=== PATIENT | female | born 1950 | race African-American/Black ===

== ENCOUNTER 2017-02-14 08:00 | Outpatient (CLI) | payer MEDICARE | END 2017-02-14 08:01 | disposition home or self-care (01) | LOC: BICMAMMO 08:00 | PROVIDERS: ATTEND Nurse Practitioner Family | DX: Z12.31 Encounter for screening mammogram for malignant neoplasm of breast (principal); R92.1 Mammographic calcification found on diagnostic imaging of breast | CPT/HCPCS: 77063 ==

== ENCOUNTER 2017-03-17 08:07 | Outpatient (CLI) | payer MEDICARE ==
[2017-03-17 09:53] LABS: Hemoglobin 9.5 g/dL (12.0-16.0); Mean Corpuscular Hemoglobin 28.7 pg (27.0-31.0); Mean Platelet Volume 8.1 fL (7.4-10.4); Platelet Count 231 thou/uL (130-400); RBC Distribution Width 11.9 % (11.5-14.5); Red Blood Cell (RBC) Count 3.31 mill/uL (4.20-5.40); White Blood Cell (WBC) Count 4.5 thou/uL (4.8-10.8)
[2017-03-17 10:00] LABS: INR-International Normal Ratio 1.1; PTT 33.6 SEC (22.9-36.1); Prothrombin Time 14.3 SEC (12.0-14.7)
[2017-03-17 10:24] LABS: ALT (SGPT) 8 U/L (8-55); AST (SGOT) 15 U/L (5-34); Albumin 3.7 g/dL (3.4-4.8); Alkaline Phosphatase 91 U/L (40-150); Anion Gap 14 mmol/L (10-20); BUN (Urea Nitrogen) 12 mg/dL (9.8-20.1); Bilirubin, Total 0.4 mg/dL (0.2-1.2); Calc. Creatinine Clearance 0 mL/min (70-130); Calcium 9.3 mg/dL (7.8-10.44); Carbon Dioxide 27 mmol/L (23-31); Chloride 105 mmol/L (98-107); Cholesterol 158 mg/dl (< 200 Desired); Estimated GFR-MDRD 42; Globulin 3.3 g/dL (2.4-3.5); Glucose 104 mg/dL (80-115); HDL Cholesterol 40 mg/dL (>60 Neg Risk); LDL Cholesterol, Calculated 91 mg/dL; Potassium 4.1 mmol/L (3.5-5.1); Sodium 142 mmol/L (136-145); Triglycerides 136 mg/dL (Less than 150)
== END 2017-03-17 08:08 | disposition home or self-care (01) ==
LOC: LABBT 08:07
PROVIDERS: ATTEND Internal Medicine Cardiovascular Disease
DX: Z01.818 Encounter for other preprocedural examination (principal); I25.10 Atherosclerotic heart disease of native coronary artery without angina pectoris; R93.1 Abnormal findings on diagnostic imaging of heart and coronary circulation
CPT/HCPCS: 80053; 80061; 85027; 85610; 85730

== ENCOUNTER 2017-05-02 08:43 | Outpatient (CLI) | payer MEDICARE ==
[2017-05-02 10:13] LABS: Mean Corpuscular HGB CONC 31.7 g/dL (32.0-36.0); Mean Corpuscular Hemoglobin 27.5 pg (27.0-31.0); Mean Corpuscular Volume 86.7 fl (81.0-99.0); Platelet Count 187 thou/uL (130-400); RBC Distribution Width 12.3 % (11.5-14.5); Red Blood Cell (RBC) Count 3.26 mill/uL (4.20-5.40); White Blood Cell (WBC) Count 3.6 thou/uL (4.8-10.8)
[2017-05-02 10:20] LABS: INR-International Normal Ratio 1.1; Prothrombin Time 14.1 SEC (12.0-14.7)
[2017-05-02 10:21] LABS: PTT 31.8 SEC (22.9-36.1)
[2017-05-02 10:28] LABS: ALT (SGPT) 7 U/L (8-55); AST (SGOT) 14 U/L (5-34); Albumin 3.7 g/dL (3.4-4.8); Alkaline Phosphatase 87 U/L (40-150); Anion Gap 12 mmol/L (10-20); BUN (Urea Nitrogen) 24 mg/dL (9.8-20.1); Bilirubin, Total 0.4 mg/dL (0.2-1.2); Calc. Creatinine Clearance 0 mL/min (70-130); Calcium 9.2 mg/dL (7.8-10.44); Carbon Dioxide 23 mmol/L (23-31); Chloride 110 mmol/L (98-107); Estimated GFR-MDRD 36; Globulin 3.1 g/dL (2.4-3.5); Glucose 87 mg/dL (80-115); Potassium 3.7 mmol/L (3.5-5.1); Protein, Total 6.8 g/dL (6.0-8.3); Sodium 141 mmol/L (136-145)
--- NOTE | 2017-05-02 17:09 | EKG ---
Test Reason : Blood Pressure : / mmHG Vent. Rate : 050 BPM Atrial Rate : 050 BPM P-R Int : 156 ms QRS Dur : 084 ms QT Int : 414 ms P-R-T Axes : -05 055 020 degrees QTc Int : 377 ms Sinus bradycardia Abnormal ECG When compared with ECG of 07-JUN-2015 11:20, ST no longer depressed in Anterolateral leads T wave inversion less evident in Lateral leads QT has shortened Confirmed by DR. Perico DOVE ([id number]) on 05/02/2017 5:08:17 PM Referred By: VANDANA Confirmed By:DR. Perico DOVE
== END 2017-05-02 08:44 | disposition home or self-care (01) ==
LOC: LABBT 08:43
PROVIDERS: ATTEND Internal Medicine Cardiovascular Disease
DX: Z01.818 Encounter for other preprocedural examination (principal); I25.10 Atherosclerotic heart disease of native coronary artery without angina pectoris; R93.1 Abnormal findings on diagnostic imaging of heart and coronary circulation
CPT/HCPCS: 80053; 85027; 85610; 85730; 93005; 93010

== ENCOUNTER 2017-05-11 06:04 | Day surgery (SDC) | payer MEDICARE ==
[2017-05-02 09:00] VITALS: BMI 19.1
[2017-05-11] MEDS ORDERED: Lidocaine 1% (PF) 30 ML VIAL ONE (06:33)
[2017-05-11 06:53] LABS: Cardiac Risk 3.3 (Less than 4.5)
[2017-05-11] MEDS ORDERED: Iopamidol 370 76% 100 ML VIAL ONE (07:24)
[2017-05-11] MEDS ORDERED: hydrALAZINE 20 MG/ML VIAL ONE (07:58)
[2017-05-11] MEDS ORDERED: Nitroglycerin 4.9 GM Bottle ONE (08:11)
--- NOTE | 2017-05-11 08:45 | HP ---
The patient's last office H&P was back in 03/28/2017. There have been really no changes since 2017. DATE OF PROCEDURE: 05/11/2017 DATE OF PLANNED OUTPATIENT ROCEDURE: 05/11/2017. HISTORY: This is a 66-year-old female who has a known history of coronary artery disease, status pos t bypass surgery, status post angioplasty and stent placement with peripheral vascular disease, hyper tension, renal artery stenosis. She was seen in the office and had been complaining of continued jelly st discomfort. She had earlier undergone a cardiac catheterization back in 03/2017 and was found to have significant underlying coronary disease. It was felt that possibly she would be a candidate to undergo angioplasty and stent placement for in-stent restenosis of the left circumflex and she was ad vised to get her kidney function and her anemia under good control as possible. She was anemic and w carmela did evaluate her. She was not found to have any evidence of blood in the stools, but she did say t hat she had a history in the past of thalassemia. This has not been followed and has not been worked up in the past other than many years ago when she was told she had thalassemia. Her mother also had thalassemia. I do not know if it is thalassemia major or minor, but she has been doing relatively s table. She takes iron twice a day. With plan for the procedure for possible angioplasty and stent p lacement to the left circumflex, this was scheduled for 05/11/2017. PAST MEDICAL HISTORY: Significant for the coronary disease as noted above, hypertension, hypercholes terolemia, dyslipidemia, congestive heart failure, History of a non-ST segment elevation myocardial infarctions, hypothyroidism. She had bypass surgery in the past. She has also had a renal artery st ents placed. She has had right leg surgery x2. She has had bilateral carpal tunnel syndrome repair. She has had a , hysterectomy, cholecystectomy. She has had a right renal artery stent odell daisha. ALLERGIES: No known drug allergies. MEDICATIONS: Prior to admission included Xanax, aspirin 325 mg a day, Lipitor 40 mg a day, Caltrate, Coreg 25 mg b.i.d., Plavix 75 mg a day, vitamin B12, Feosol 325 mg twice a day, Lasix 20 mg a day, h ydralazine 25 mg 3 times daily, isosorbide mononitrate 60 mg q.a.m. She also was taking levothyroxin e 25 mcg daily, lisinopril 10 mg a day, pantoprazole 40 mg q.p.m. and potassium 10 mEq p.o. daily. I will hold her lisinopril at this time. REVIEW OF SYSTEMS: She mainly complained of chest discomfort. She also complains of lower extremity discomfort at times and sometimes cramping. Sometimes she will get fatigued when walking. She has undergone arterial Doppler evaluation which showed mild to moderate lower extremity stenosis or disea se. She denied any weight gain or loss, no significant visual changes. She had denied any significa nt pulmonary problems except for dyspnea on exertion. CARDIOVASCULAR: Continues to have some occasional chest discomfort if she over exerts herself. GASTROINTESTINAL: She denied any nausea, vomiting or diarrhea. : She had no complaints such as dysuria, polyuria or hematuria. MUSCULOSKELETAL: As noted above. She complains of lower extremity claudication at times and crampin g, no swelling or significant edema was noted. NEUROLOGICAL: She has had no complaints of syncope. No significant dizziness. PHYSICAL EXAMINATION: GENERAL: Reveals a well-developed, well-nourished female who is in no acute distress at this time. VITAL SIGNS: Blood pressure was 169/78, heart rate is anywhere between 50-70s with a normal sinus rh ythm. HEENT: Shows the head to be normocephalic, atraumatic. Carotid pulses were present. She has bilate ral carotid bruits which was previously noted, the left being greater than the right. CHEST: Clear to auscultation. CARDIOVASCULAR: Exam reveals a regular rate and rhythm, normal S1, S2. ABDOMEN: Also unremarkable. She has had soft bruits in the past. Femoral pulses are present. She has bilateral femoral bruits. EXTREMITIES: Show no clubbing, cyanosis. Pedal pulses were decreased, cannot palpate pedal pulses. NEUROLOGIC: She appears to be fully intact and did not notice any focal motor deficits. SKIN: Warm and dry. IMPRESSION: Severe 3-vessel coronary artery disease. She is being evaluated for possible angioplast y and repeat stent placement. A repeat angioplasty to the in-stent restenosis of the left circumflex to see if there is any other possibility of any other revascularization that might be possible. We did explain the procedure, the risks to her to include bleeding, infection, possibly a myocardial inf arction, cerebrovascular, worsening of renal insufficiency, even the possibility of . She under stands and has agreed to proceed with the procedure which was planned for today on 05/11/2017.
--- NOTE | 2017-05-11 10:39 | DIS ---
ADMITTING DIAGNOSES: Known coronary artery disease, status post angioplasty, stent placements in the past, and also status post bypass surgery with progression of coronary artery disease as well as ane viry and hypertension. She was advised to undergo repeat catheterization with the hope that we might be able to perform a repeat angioplasty to the left circumflex. She was taken to the cardiac cath la b where she underwent that procedure today. OTHER ADMITTING DIAGNOSES: Include the hypertension, hypercholesterolemia, peripheral vascular disea se, hypothyroidism, some degree of depression, history of stent placement in the past, history of abbie al artery stenosis. She has undergone a right renal artery stenting. DISCHARGE DIAGNOSES: Known coronary artery disease, status post angioplasty, stent placements in the past, and also status post bypass surgery with progression of the coronary artery disease as well as anemia and hypertension. She was advised to undergo repeat catheterization with the hope that we mi t be able to perform a repeat angioplasty to the left circumflex. She was taken to the cardiac cat h lab where she underwent that procedure today. Hypertension, hypercholesterolemia, peripheral vascu lar disease, hypothyroidism, some degree of depression, history of stent placement in the past, histo ry of renal artery stenosis. She has undergone a right renal artery stenting. PROCEDURE IN THE HOSPITAL: Cardiac catheterization with evaluation of the coronary arteries, left in ternal mammary artery, saphenous vein graft, and also renal arteries. Her discharge medications will be the same as her admission medications except she will no longer be taking lisinopril, which was recently started. Her renal function has deteriorated somewhat since th at time, but she does have distal disease in the renal arteries. DISCHARGE MEDICATIONS: Include Xanax, aspirin, Lipitor, Caltrate, Coreg, Plavix, vitamin B12, Feosol , Lasix, hydralazine, isosorbide mononitrate, levothyroxine, pantoprazole, and potassium. Her followup will be with me in about 1 month in the office. She will continue routine followups wit h her primary care physician. HOSPITAL COURSE: She came in for the procedure. We reevaluated the coronary arteries. She is not a candidate to undergo repeat procedures. She has very small vessels and they are heavily calcified. She has some distal left main stenosis in the proximal left circumflex, also 75%-90% stenosed. Ther e is in-stent restenosis that is probably 90%. We would be unable to pass a balloon across this more than 90-degree angle on the proximal left circumflex, especially with the left main stenosis also to try to engage into this artery. The artery still does remain patent, despite having severe stenosis . Her other vessels are less than 2 mm in diameter. The proximal left circumflex is also less than 2 mm in diameter as well as distended area. She still has a patent ALMAR[place] to the left anterior descend ing artery, but has diffuse disease and calcification beyond the anastomotic site. Her other vessels are not operable. She has a 100% occlusion of the saphenous vein graft to the right coronary, 100% occlusion of the [place] right vessel. All of her grafts are closed. We did visualize one graft toda y and that also was noted to be 100% occluded. At this time, we will be able to continue medical man agement only. If she remains stable, she will be discharged home in the next 3-4 hours.
== END 2017-05-11 12:36 | disposition home or self-care (01) ==
LOC: CCL 06:04
PROVIDERS: ATTEND Internal Medicine Cardiovascular Disease
PROC: 04HY32Z Insertion of Monitoring Device into Lower Artery, Percutaneous Approach (ICD-10-PCS; principal; 2017-05-11)
PROC: 4A023N7 Measurement of Cardiac Sampling and Pressure, Left Heart, Percutaneous Approach (ICD-10-PCS; 2017-05-11)
PROC: B2111ZZ Fluoroscopy of Multiple Coronary Arteries using Low Osmolar Contrast (ICD-10-PCS; 2017-05-11)
PROC: B2181ZZ Fluoroscopy of Left Internal Mammary Bypass Graft using Low Osmolar Contrast (ICD-10-PCS; 2017-05-11)
DX: I25.10 Atherosclerotic heart disease of native coronary artery without angina pectoris (principal); I11.0 Hypertensive heart disease with heart failure; I50.9 Heart failure, unspecified; I25.2 Old myocardial infarction; I73.9 Peripheral vascular disease, unspecified; D64.9 Anemia, unspecified; D56.9 Thalassemia, unspecified; E78.00 Pure hypercholesterolemia, unspecified; E03.9 Hypothyroidism, unspecified; F32.9 Major depressive disorder, single episode, unspecified; E78.5 Hyperlipidemia, unspecified; Z95.5 Presence of coronary angioplasty implant and graft; Z95.1 Presence of aortocoronary bypass graft; Z95.828 Presence of other vascular implants and grafts; Z79.82 Long term (current) use of aspirin; Z79.01 Long term (current) use of anticoagulants; Z79.899 Other long term (current) drug therapy
CPT/HCPCS: 36252; 80061; 93455; C1769; J0360; J1644; J2001

== ENCOUNTER 2017-06-30 20:16 | Inpatient (IN) | payer MEDICARE ==
[2017-06-30 20:43] LABS: Hemoglobin 11.8 g/dL (12.0-16.0); Mean Corpuscular HGB CONC 33.1 g/dL (32.0-36.0); Mean Corpuscular Hemoglobin 27.1 pg (27.0-31.0); Mean Platelet Volume 9.1 fL (7.4-10.4); Platelet Count 199 thou/uL (130-400); RBC Distribution Width 13.4 % (11.5-14.5); Red Blood Cell (RBC) Count 4.36 mill/uL (4.20-5.40)
[2017-06-30 20:48] LABS: Prothrombin Time 13.7 SEC (12.0-14.7)
--- NOTE | 2017-06-30 20:48 | CT ---
NONCONTRAST HEAD CT 06/30/17 HISTORY: Right sided weakness. Dysphagia. Headache. COMPARISON: 07/18/04. TECHNIQUE: Noncontrast head CT is performed from skull base to skull vertex. FINDINGS: No parenchymal hemorrhage. No extra-axial hematoma. No midline shift. Basilar cisterns are patent. Brain volume, age appropriate. Cortical silva-white matter differentiation is preserved. The ventricles and sulci are patent and symmetric. Calvarium is intact. Adequate aeration of the sinu ses and mastoid air cells. Old right lamina papyracea fracture is suggested. IMPRESSION: No acute intracranial process. Results of the study discussed with Dr. Allan, 06/30/17 at 8:41 p.m. Code CR POS: [facility]
[2017-06-30 20:58] LABS: CKMB 1.3 ng/mL (0-6.6); Troponin I Less than 0.010 ng/mL (< 0.028)
[2017-06-30 21:06] LABS: Eosinophils 1 % (0-10); Lymphocytes 55 % (21-51); MDiff Complete? YES; Monocytes 7 % (0-10); Neutrophil 37 % (42-75)
[2017-06-30 21:19] LABS: ALT (SGPT) 8 U/L (8-55); AST (SGOT) 21 U/L (5-34); Albumin 4.3 g/dL (3.4-4.8); Alkaline Phosphatase 104 U/L (40-150); Anion Gap 16 mmol/L (10-20); BUN (Urea Nitrogen) 21 mg/dL (9.8-20.1); Bilirubin, Total 0.4 mg/dL (0.2-1.2); Calc. Creatinine Clearance 0 mL/min (70-130); Calcium 9.8 mg/dL (7.8-10.44); Carbon Dioxide 21 mmol/L (23-31); Chloride 106 mmol/L (98-107); Estimated GFR-MDRD 40; Glucose 97 mg/dL (80-115); Potassium 3.9 mmol/L (3.5-5.1); Protein, Total 8.3 g/dL (6.0-8.3); Sodium 139 mmol/L (136-145)
--- NOTE | 2017-06-30 21:25 | CT ---
CT ANGIOGRAM OF THE HEAD CT ANGIOGRAM OF THE NECK CT PERFUSION 06/30/17 HISTORY: Right sided weakness. Evaluate for possible thrombus or occlusion . COMPARISON: None. TECHNIQUE: CT angiogram of the head and neck are performed in the axial plain. Three dimensional reformatted austyn ges are submitted for interpretation. Perfusion CT. FINDINGS: The visualized brain parenchyma demonstrates preservation of cortical silva-white matter differentiati on. Bilateral ocular lens implants are appropriately located. Both globes are intact. Retrobulbar fat is preserved. Symmetric attenuation of the optic nerve and ocular rectus muscles. Aerodigestive tract is patent. There is an enhancing focus involving the posterior left oral cavity m easuring approximately 1 cm. The lesion is submucosal. Midline fatty raphae of the tongue appears to be preserved. No anterior oral cavity masses. Epiglottis has a normal caliber. Pre-epiglottic fat is preserved. There is no prevertebral soft tissue swelling. Symmetric attenuation of the parotid and submandibular glands. Unremarkable thyroid gland. Symmetric attenuation of the sternocleidomastoid muscles. No evidence of lymphadenopathy by size criteria. Varying degrees of central canal stenosis and foraminal narrowing on the basis of degenerative change . Cervical spine vertebral body height is maintained. No fracture. Grade I anterolisthesis of C7 upon T1. Upper mediastinum and lung apices are unremarkable. CT ANGIOGRAM: The aortic arch has appropriate enhancement and luminal diameter. Atherosclerosis is noted. RIGHT CAROTID: The origin of the right carotid artery and innominate artery have appropriate enhancement and luminal diameter. Right common carotid artery, carotid bifurcation, and internal carotid artery have an over all appropriate enhancement and luminal diameter. No evidence of significant stenosis based upon NASC ET criteria. Small amounts of calcified plaque are noted in the distal common carotid, carotid bifurc ation and the origin of the external carotid artery. LEFT CAROTID: The origin of the left carotid artery has appropriate enhancement and luminal diameter. The left comm on carotid, carotid bifurcation and internal carotid artery have appropriate enhancement and luminal diameter. There is short segment mild narrowing of the proximal left external carotid artery. The origin of the left and right vertebral artery are patent. The left vertebral artery is dominant. Vertebral artery is patent throughout the neck. The right vertebral artery appears to be occluded in its mid to distal aspect as it courses through the neck. There is some recanalization at the level of the C1-2 level. Bilateral subclavian arteries are unremarkable. CT ANGIOGRAM OF THE HEAD: There is symmetric enhancement and luminal diameter of the distal cervical and intracranial internal carotid arteries. There is calcified plaque with mild stenosis involving both cavernous carotid segme nts. ANTERIOR CIRCULATION: There is a normal appearing left and right A1 and A2 segment. The right M1 segment has a normal appea ken. The left M1 segment appears to have abrupt angulation just beyond the takeoff of the A1 segmen t. The entire left M1 segment is diminutive which maybe a congential varriant. There appears to be sh ort segment moderate stenosis involving the visualized branch of the left middle cerebral artery dist ally. The intracranial right vertebral artery is poorly opacified. Questionable PICA termination. The left vertebral artery appears to be the sole supplying vessel to the basilar artery. There is mild stenosi s of the mid portion of the basilar artery. The left P1 segment has appropriate enhancement and lumin al diameter. The right P1 segment is diminutive. CT perfusion images demonstrate slightly increased mean transit time involving the posterior left perla trum semiovale. There is no associated decreased blood flow or blood volume. IMPRESSION: Increased mean transit time involving the posterior left centrum semiovale without associated decreas ed blood flow or volume. Ischemic changes are favored. No evidence of a thrombus at the ely [place]. Likely diminutive left M1 segment with moderate d istal stenosis. Results of the CT angiogram of the head and neck as well as the perfusion CT were discussed with Dr. Allan, 06/30/17 at 9:17 p.m. Mercedes [place] POS: [facility]
[2017-06-30 21:29] LABS: Bilirubin Negative (Negative); Blood, Urine Negative (Negative); Clarity CLEAR (Clear); Glucose, Urine (Dipstick) Negative (Negative); Leukocyte Negative (Negative); Nitrite Negative (Negative); Protein, Urine (Dipstick) Negative (Neg-Trace); Specific Gravity, Urine 1.022 (1.002-1.036); Urobilinogen 0.2 mg/dL (0.2-1.0)
[2017-07-01] MEDS ORDERED: Ondansetron HCl/PF 4 MG/2 ML Vial IVP PRN ×2 (00:31→06:14)
[2017-07-01] MEDS ORDERED: Ondansetron ODT 4 MG TAB SL PRN (00:31)
[2017-07-01] MEDS ORDERED: Acetaminophen 325 MG TAB PO PRN (00:31)
[2017-07-01 04:36] VITALS: BMI 20.2
[2017-07-01] MEDS ORDERED: Labetalol HCl 100 MG/20 ML VIAL SLOW IVP PRN (06:14)
[2017-07-01] MEDS ORDERED: Acetaminophen 500 MG TAB PO PRN (06:14)
[2017-07-01] MEDS ORDERED: ALPRAZolam 0.5 MG TAB PO PRN (06:14)
[2017-07-01] MEDS ORDERED: hydrALAZINE 20 MG/ML VIAL SLOW IVP PRN (06:14)
[2017-07-01] MEDS ORDERED: Ondansetron ODT 4 MG TAB PO PRN (06:14)
--- NOTE | 2017-07-01 07:08 | HP ---
DATE OF ADMISSION: 07/01/2017 PRIMARY CARE PROVIDER: Kala Sood N.P. CHIEF COMPLAINT: Right-sided weakness and facial droop. HISTORY OF PRESENT ILLNESS: This is a 66-year-old -[place] female who presents to [facility] Emergency Department, complaining of sudden onset of right-sided weakness and facial droop beginning approximately 3:00 in the afternoon on 06/30/2017. The patient states she in itially felt an excruciating headache on the right side of her scalp, stating this was "the worst hea dache of her life." She states she took a nap, thinking this would relieve her headache; however, wh en she woke up, she noticed the facial drooping, right-sided weakness of her hands, arms, and lower e xtremity as well as difficulty swallowing her saliva. The patient states she had trouble swallowing even small amounts of water. At the same time, she experienced the facial droop. The patient denied any recent visual changes, blurred vision, or loss of vision. The patient does admit that she takes aspirin 325 mg and Plavix 75 mg daily. The patient denied any noncompliance with her antihypertensi ve regimen and states she did take her blood pressure at home and noted the top number in the 170s an d the bottom number in the upper 80s to low 90s. The patient states she called her daughter to alert her to her symptoms, at which point EMS were notified and the patient was brought to the emergency r oom for evaluation. The patient underwent CT imaging of the brain showing no acute intracranial proc ess. The patient subsequently underwent CT angiogram of the head and neck and brain showing evidence of ischemic changes in the posterior left centrum semiovale. The patient did receive 324 mg of aspi rin in the emergency room and was referred to the Hospitalist Service for further evaluation. PAST MEDICAL HISTORY: 1. Coronary artery disease, medically managed. 2. Hyperlipidemia. 3. Hypertension. 4. History of vulvar cancer. 5. Chronic normocytic anemia. 6. Chronic kidney disease stage 3. 7. History of renal artery stenosis. 8. Peripheral vascular disease. 9. Hypothyroidism. 10. Depression. PAST SURGICAL HISTORY: 1. Status post coronary artery bypass grafting in 1995. 2. Status post cardiac catheterization, status post stent placement. 3. Status post cholecystectomy. 4. Status post left renal artery stent placement. 5. Status post hysterectomy. CURRENT MEDICATIONS: 1. Xanax 0.5 mg p.o. at bedtime p.r.n. 2. Enteric coated aspirin 325 mg p.o. daily. 3. Lipitor 40 mg p.o. at bedtime. 4. Calcium carbonate 600 mg p.o. daily. 5. Coreg 12.5 mg p.o. b.i.d. 6. Plavix 75 mg p.o. daily. 7. Vitamin B12 of 500 mg p.o. daily. 8. Feosol 325 mg p.o. b.i.d. 9. Lasix 20 mg p.o. q.a.m. 10. Hydralazine 25 mg p.o. t.i.d. 11. Isosorbide mononitrate 60 mg p.o. daily. 12. Levothyroxine 25 mcg p.o. daily. 13. Protonix 40 mg p.o. at bedtime. 14. Klor-Con 10 of 10 mEq p.o. daily. ALLERGIES: No known drug allergies. FAMILY HISTORY: Significant for coronary disease and COPD. SOCIAL HISTORY: Patient resides in [place], [place]. Disabled. Previous smoking up to half a pack of c igarettes daily. Occasional alcohol use. No illicit drug use. Has 2 daughters. REVIEW OF SYSTEMS: The following complete review of systems was negative, unless otherwise mentioned in the HPI or below: Constitutional: Weight loss or gain, ability to conduct usual activities. Sk in: Rash, itching. Eyes: Double vision, pain. ENT/Mouth: Nose bleeding, neck stiffness, pain, te nderness. Cardiovascular: Palpitations, dyspnea on exertion, orthopnea. Respiratory: Shortness of breath, wheezing, cough, hemoptysis, fever or night sweats. Gastrointestinal: Poor appetite, abdom inal pain, heartburn, nausea, vomiting, constipation, or diarrhea. Genitourinary: Urgency, frequenc y, dysuria, nocturia. Musculoskeletal: Pain, swelling. Neurologic/Psychiatric: Anxiety, depressio n. Allergy/Immunologic: Skin rash, bleeding tendency. Otherwise negative except as stated per HPI. PHYSICAL EXAMINATION: VITAL SIGNS: On admission, blood pressure 162/74, pulse 52, respiratory rate 16, temperature 97.7 de grees Fahrenheit, O2 saturation 97% on room air. GENERAL APPEARANCE: This is a 66-year-old -[place] female, alert and oriented x3, pleasant, conversant, in no acute distress. HEENT: Pupils are equal, round, and reactive to light and accommodation. Extraocular muscles are in tact. No scleral icterus, no conjunctival injection. Nares patent. OP is clear. Teeth in fair rep air. NECK: Supple, no cervical adenopathy, no thyromegaly, no carotid bruits, no JVD appreciated. Cervic al spine with full active and passive range of motion. No facial asymmetry noted. CHEST: Lungs are clear to auscultation bilaterally. CARDIOVASCULAR: S1, S2, without murmur, rub, or gallop. ABDOMEN: Rounded, soft, nontender, nondistended. Bowel sounds are positive in all four quadrants. No hepatosplenomegaly, no abdominal bruits, no rebound or guarding appreciated. EXTREMITIES: Warm and dry with fair turgor. No clubbing, cyanosis or asymmetric edema appreciated. Pulses are palpable distally at the dorsalis pedis, posterior tibial, and popliteal arteries bilater ally. Capillary refill less than 2 seconds. NEUROLOGIC: Right hand dominant. No focal weakness appreciated. Cranial nerves II-XII are grossly intact. No facial asymmetry noted. Follows all commands appropriately. PERTINENT LABORATORY AND X-RAY FINDINGS: Sodium 139, potassium 3.9, chloride 106, CO2 of 21, BUN 21, creatinine 1.56 with estimated GFR of 40, glucose 95, calcium 9.8. LFTs within normal limits. Trop onin I negative x1. CBC showed a white blood cell count 4.0, hemoglobin 12, hematocrit 36, platelet count 199 with 37% neutrophils. PT 13.7, INR 1.0, PTT 32.0. Urinalysis negative. CT of the brain d ated 06/30/2017 showed no acute intracranial process. CT angiogram of the head and neck dated 2017 showed ischemic changes in the posterior left centrum semiovale. No evidence of thrombus in the [place]. Diminutive left M1 segment with moderate distal stenosis. EKG dated on June 30, 2017 by my interpretation shows sinus mechanism with heart rates in the 60s. Attenuated R waves not ed in the precordial leads. T-wave inversion in leads V2 through V5. Normal axis. No acute ST-T wa ve changes appreciated. ASSESSMENT AND PLAN: 1. Transient ischemic attack. The patient will be admitted to the stroke unit. Questionable involv ement of ischemia in the posterior left centrum semiovale. We will obtain MRI imaging to further del ineate anatomy. Consult Neurology service for further recommendations. We will continue aspirin 325 mg daily with additional Plavix 75 mg daily. Check fasting lipid profile. Continue risk factor mod ification and secondary prevention. Continue general stroke protocol. Obtain 2D transthoracic echoc ardiogram. 2. Hypertensive urgency. Initial blood pressure in the emergency room 245/89. Currently improved w ith supportive measures. We will continue to monitor serial blood pressures and titrate blood pressu re regimen accordingly. 3. Coronary artery disease. Chronic and stable. 4. Status post left heart catheterization showing severe three-vessel coronary artery disease with r ecommendations for medical management. 5. Chronic kidney disease stage 3. Avoid nephrotoxic agents and contrast media. Repeat creatinine in the a.m. 6. Normocytic anemia, chronic. No current evidence to suggest acute blood loss. Continue ferrous s ulfate 325 mg b.i.d. Repeat CBC in the a.m. 7. Prophylaxis. Sequential compression devices while in bed. Pepcid 20 mg p.o. b.i.d. PT, OT, and speech therapy evaluation pending. 8. Code status is FULL. Surrogate medical decision maker is the patient's daughter, Penelope.
--- NOTE | 2017-07-01 08:58 | MRI ---
MRI BRAIN NONCONTRAST: Date: 07/01/17 HISTORY: 66-year-old female with TIA, right-sided weakness, dysphagia, and headache. FINDINGS: The ventricles are normal in size and configuration. There is no restricted diffusion, midline shift or any other mass effect, recent intraaxial hemorrhage, or extraaxial fluid collection. There are a few scattered punctate T2-hyperintensities in the cerebral white matter consistent with mild chronic ischemic white matter changes due to mild microvascular atherosclerosis. There is loss of the normal signal void in the right vertebral artery, both in the proximal intracran ial segment, and in the extracranial segment within the right foramen transversarium of C1. There is a small, approximately 0.8 x 0.3 cm patch of subtle T2 hyperintensity in the right posterior aspect of the medulla, which is questionable for a small, nonacute infarction. IMPRESSION: 1. Mild chronic ischemic white matter changes. 2. Chronic occlusion of the right vertebral artery. 3. Evidence for small, nonacute infarction of the posterior aspect of the right medulla. 4. No evidence of acute infarction. darya POS: [facility]
[2017-07-01] MEDS ORDERED: Clopidogrel Bisulfate 75 MG TAB PO SCH (09:00)
--- NOTE | 2017-07-01 09:05 | CON ---
DATE OF CONSULTATION: 07/01/2017 NEUROLOGY CONSULTATION CONSULTING PHYSICIAN: Hospitalist Service. IMPRESSION: 1. Right medulla oblongata infarct. 2. Hypertension. 3. Aspirin and Plavix failure. PLAN: 1. Aggrenox 1 twice a day. 2. Discontinue Plavix. 3. Continue Lipitor. 4. Echocardiogram to complete her workup. HISTORY OF PRESENT ILLNESS: Ms. Gooden is a 66-year-old black female who came in with complaints of right-sided headache with difficulty swallowing and ataxia. Her symptoms began yesterday and she jose cruz emmett at home for several hours, hoping that things will get better. She came to the emergency room fo r evaluation last evening. She reports she had marked difficulty swallowing liquids as well as solid s. She felt like the right side of her throat was not working correctly. She had a CTA of last ing, which did not show any acute areas of ischemia, but the right vertebral artery was occluded. Luis casey has been admitted for further evaluation. She had an MRI of the brain this morning which showed an acute area of infarction in the right medulla oblongata. Her symptoms have essentially cleared. Luis casey was quite hypertensive last evening with blood pressure 214/95. Her lab work was otherwise unremar kable. PAST MEDICAL HISTORY: Hypertension and hyperlipidemia. MEDICATIONS: Included aspirin, Plavix, and statin. SOCIAL HISTORY: No tobacco or alcohol use. FAMILY HISTORY: Noncontributory. REVIEW OF SYSTEMS: No chest pain, shortness of breath, alteration of consciousness, double vision, o r abdominal pain. PHYSICAL EXAMINATION: GENERAL: She is a petite elderly lady in no distress. VITAL SIGNS: Blood pressure 173/81, pulse 54, respirations 16, temperature 99.1. HEENT: Pupils equal and reactive. Conjunctivae clear. Oropharynx clear. NECK: Supple. EXTREMITIES: No cyanosis, clubbing or edema. NEUROLOGIC: She is alert and appropriate. Her speech is fluent and clear. Cranial nerves II-XII ar e intact. Motor exam showed symmetric strength without fix or drift. Sensation was intact to light touch. She can walk independently. No abnormal movements were seen. IMAGING DATA: EKG shows sinus rhythm. LABORATORY DATA: Laboratory studies including CBC, coags, and chemistry were all unremarkable. SUMMARY: A 66-year-old woman with a history of hypertension who suffered right vertebral artery occl usion and subsequent small brainstem stroke. She is doing quite well today. I would suggest switchi ng her over to Aggrenox. Her echocardiogram is pending, but I suspect she will be able to be dischar ge this afternoon.
[2017-07-01] MEDS: Ferrous Sulfate 325 MG TAB PO SCH ×2 (09:12→16:26)
[2017-07-01] MEDS: Aspirin 325 mg Enteric Coated Tablet PO SCH (09:12)
[2017-07-01] MEDS: Potassium Chloride 10 MEQ TAB PO SCH (09:12)
[2017-07-01] MEDS: hydrALAZINE 25 MG TAB PO SCH ×3 (09:13→20:07)
[2017-07-01] MEDS: Cyanocobalamin (Vitamin B-12) 1,000 MCG TAB PO SCH (09:13)
[2017-07-01] MEDS: Carvedilol 25 MG TAB PO SCH ×2 (09:13→20:05)
[2017-07-01] MEDS: Furosemide 20 MG TAB PO SCH (09:13)
[2017-07-01] MEDS: Calcium Carbonate 600 MG TAB PO SCH (09:13)
[2017-07-01] MEDS: Famotidine 20 MG TAB PO SCH (09:13)
[2017-07-01] MEDS ORDERED: Aggrenox 200-25mg CAP PO SCH (09:15)
--- NOTE | 2017-07-01 13:42 | PDOC.EVN ---
Event Note - Event Note Event Note: pt seen and examined.chart reviewed.care discussed w pt. MRI shows non acute infarct but per neurology ,seems acute Right medulla infarct. as per neuro recs-will DC ASA and plavix and start Aggrenox. ECHO doen ,result spending. cont OT,PT,PORT CDL A DRIVER eval. am labs HD stable
[2017-07-01] MEDS ORDERED: Atorvastatin Calcium 40 MG TAB PO SCH ×2 (21:00)
[2017-07-02 05:32] LABS: Band 1 % (5-11); Eosinophils 2 % (0-10); Hemoglobin 9.3 g/dL (12.0-16.0); Lymphocytes 54 % (21-51); MDiff Complete? YES; Mean Corpuscular HGB CONC 33.4 g/dL (32.0-36.0); Mean Corpuscular Hemoglobin 27.2 pg (27.0-31.0); Mean Corpuscular Volume 81.5 fl (81.0-99.0); Mean Platelet Volume 8.6 fL (7.4-10.4); Monocytes 6 % (0-10); Neutrophil 37 % (42-75); Platelet Count 170 thou/uL (130-400); RBC Distribution Width 13.2 % (11.5-14.5); White Blood Cell (WBC) Count 4.3 thou/uL (4.8-10.8)
[2017-07-02 05:36] LABS: Anion Gap 12 mmol/L (10-20); BUN (Urea Nitrogen) 25 mg/dL (9.8-20.1); Calc. Creatinine Clearance 23 mL/min (70-130); Calcium 9.3 mg/dL (7.8-10.44); Carbon Dioxide 25 mmol/L (23-31); Cardiac Risk 3.7 (Less than 4.5); Chloride 101 mmol/L (98-107); Cholesterol 131 mg/dl (< 200 Desired); Estimated GFR-MDRD 35; Glucose 92 mg/dL (80-115); HDL Cholesterol 35 mg/dL (>60 Neg Risk); LDL Cholesterol, Calculated 73 mg/dL; Potassium 3.2 mmol/L (3.5-5.1); Sodium 135 mmol/L (136-145); Triglycerides 113 mg/dL (Less than 150)
[2017-07-02] MEDS ORDERED: Levothyroxine Sodium 25 MCG TAB PO SCH (06:00)
[2017-07-02] MEDS: Carvedilol 25 MG TAB PO SCH (08:15)
[2017-07-02] MEDS: Famotidine 20 MG TAB PO SCH (08:15)
[2017-07-02] MEDS: hydrALAZINE 25 MG TAB PO SCH (08:16)
[2017-07-02] MEDS: Potassium Chloride 10 MEQ TAB PO SCH (08:16)
[2017-07-02] MEDS: Ferrous Sulfate 325 MG TAB PO SCH (08:16)
[2017-07-02] MEDS: Calcium Carbonate 600 MG TAB PO SCH (08:16)
[2017-07-02] MEDS: Cyanocobalamin (Vitamin B-12) 1,000 MCG TAB PO SCH (08:16)
[2017-07-02] MEDS: Furosemide 20 MG TAB PO SCH (08:17)
[2017-07-02] MEDS: Aspirin 325 mg Enteric Coated Tablet PO SCH (08:17)
[2017-07-02] MEDS ORDERED: Aggrenox 200-25mg CAP PO SCH (09:00)
[2017-07-02] MEDS ORDERED: Potassium Chloride 20 MEQ TAB PO SCH (10:30)
--- NOTE | 2017-07-02 11:19 | PDOC.EVN ---
Event Note - Event Note Event Note: DC SUMMARY DICTATED #[id number]
[2017-07-02 12:05] VITALS: BP 144/66; TEMP 98.3
--- NOTE | 2017-07-02 19:39 | DIS ---
DATE OF ADMISSION: 06/30/2017 DATE OF DISCHARGE: 07/02/2017 ADMITTING DIAGNOSES: Right-sided weakness and facial droop, hypertensive urgency, history of coronar y artery disease, hyperlipidemia, chronic kidney disease stage 3, history of renal artery stenosis, p eripheral vascular disease, hypothyroidism and depression. DISCHARGE DIAGNOSES: Transient ischemic attack, coronary artery disease, hyperlipidemia, hypertensio n, chronic kidney disease 3, history of renal artery stenosis, history of peripheral vascular disease , history of hypothyroidism, history of depression. HOSPITAL COURSE: This is a 66-year-old female who was admitted to the hospital complaining of right- sided weakness as well as a facial droop that started approximately at 3 hours. Patient was admitted to the hospital, had multiple imaging studies done of her brain inclusive of CT angiography, brain C T, CT of [place], head and neck CT with perfusion, brain MRI, echocardiogram done as well. Echo did not reveal any embolic source. MRI showed mild chronic ischemic white changes, chronic occl usion of the right vertebral artery and evidence of nonacute infarction of the posterior aspect of th e right medulla. No evidence of acute infarction noted. Patient was seen by Internal Medicine and N eurology and had telemetry following as well. The patient's home medications of dual antiplatelet wi th aspirin and Plavix were adjusted. The patient was started on aspirin 81 and Aggrenox and Plavix w as discontinued. At point in time of discharge, the patient was to continue with aspirin and Aggreno x and not continue the Plavix any further. Prescription was written for the Aggrenox and e-scripted to her pharmacy on file. Patient at this point time of discharge, she sates she feels that she is ba ck to her baseline. Denies any nausea, vomiting, diarrhea, constipation, chest pain, fevers, chills, or shortness of breath. Patient's condition also per patient is back at baseline. Patient at this point in time will be discharged home and will have to follow up with PCP within 1 week. She states that she does not want to have any aggressive rehabilitation or further physical therapy at home at t his point in time and will arrange all these by herself with her outpatient PCP. CONDITION ON DISCHARGE: Stable. PROGNOSIS: Good. DIET: Low fat, low calorie, high-fiber diet. ACTIVITY: As tolerated. DISPOSITION: Home. Case and plan discussed with the patient at length. She understands and agrees with this plan.
[2017-07-04] MEDS ORDERED: Aggrenox 200-25mg CAP PO SCH (09:00)
== END 2017-07-02 13:46 | disposition home or self-care (01) | DRG 69 ==
LOC: ERS 20:16 → 2SE 21:55
PROVIDERS: ADMIT Family Medicine; ATTEND Family Medicine
DX: G45.9 Transient cerebral ischemic attack, unspecified (principal); G81.91 Hemiplegia, unspecified affecting right dominant side; N18.3 Chronic kidney disease, stage 3 (moderate); I16.0 Hypertensive urgency; R29.810 Facial weakness; I25.10 Atherosclerotic heart disease of native coronary artery without angina pectoris; E78.5 Hyperlipidemia, unspecified; E03.9 Hypothyroidism, unspecified; F32.9 Major depressive disorder, single episode, unspecified; I12.9 Hypertensive chronic kidney disease with stage 1 through stage 4 chronic kidney disease, or unspecified chronic kidney disease; Z95.1 Presence of aortocoronary bypass graft; Z95.5 Presence of coronary angioplasty implant and graft; Z79.899 Other long term (current) drug therapy; Z79.02 Long term (current) use of antithrombotics/antiplatelets
CPT/HCPCS: 0042T; 36415; 36416; 51701; 70450; 70496; 70498; 70551; 80048; 80053; 80061; 81003; 82553; 84484; 85007; 85025; 85027; 85610; 85730; 93005; 93306; 99406; A4216; A4353; G8978-GP-CH; G8979-GP-CH; G8980-GP-CH; G8987-GO-CI; G8988-GO-CI; G8989-GO-CI; G8996-GN-CH; G8997-GN-CH; Q0162

== ENCOUNTER 2018-02-16 08:40 | Outpatient (CLI) | payer MEDICARE | END 2018-02-16 08:41 | disposition home or self-care (01) | LOC: BICMAMMO 08:40 | PROVIDERS: ATTEND Nurse Practitioner Family | DX: Z12.31 Encounter for screening mammogram for malignant neoplasm of breast (principal); Z85.89 Personal history of malignant neoplasm of other organs and systems | CPT/HCPCS: 77063; 77067 ==

== ENCOUNTER 2018-02-23 09:54 | Inpatient (IN) | payer MEDICARE ==
[2018-02-23 11:01] LABS: #Lymphocytes 2.9 thou/uL (1.20-3.40); #Monocytes 0.5 thou/uL (0.11-0.59); #Neutrophils 3.1 thou/uL (1.40-6.50); %Basophils 0.5 % (0.0-1.0); %Eosinophils 0.7 % (0.0-10.0); %Lymphocytes 44.2 % (21.0-51.0); %Monocytes 7.7 % (0.0-10.0); %Neutrophils 46.7 % (42.0-75.0); MDiff Complete? YES; Mean Corpuscular HGB CONC 32.1 g/dL (32.0-36.0); Mean Corpuscular Hemoglobin 26.6 pg (27.0-31.0); Mean Corpuscular Volume 82.9 fL (78.0-98.0); Mean Platelet Volume 10.2 fL (7.4-10.4); Ovalocytes SLIGHT = 2-5 cells (100X) (0-1/hpf); Platelet Count 204 thou/uL (130-400); RBC Distribution Width 17.7 % (11.5-14.5); Red Blood Cell (RBC) Count 2.63 mill/uL (4.20-5.40); White Blood Cell (WBC) Count 6.5 thou/uL (4.8-10.8)
[2018-02-23 11:02] LABS: ALT (SGPT) 11 U/L (8-55); AST (SGOT) 70 U/L (5-34); Albumin 3.4 g/dL (3.4-4.8); Alkaline Phosphatase 81 U/L (40-150); Anion Gap 22 mmol/L (10-20); BUN (Urea Nitrogen) 46 mg/dL (9.8-20.1); Bilirubin, Total 0.4 mg/dL (0.2-1.2); CK (CPK) 957 U/L (29-168); Calc. Creatinine Clearance 0 mL/min (70-130); Carbon Dioxide 15 mmol/L (23-31); Chloride 107 mmol/L (98-107); Estimated GFR-MDRD 21; Globulin 2.8 g/dL (2.4-3.5); Glucose 147 mg/dL (80-115); Potassium 4.7 mmol/L (3.5-5.1); Protein, Total 6.2 g/dL (6.0-8.3); Sodium 139 mmol/L (136-145)
[2018-02-23 11:24] LABS: CKMB 177.5 ng/mL (0-6.6)
[2018-02-23] MEDS ORDERED: Atropine Sulfate 1 mg/10 ml Syringe ONE (11:25)
[2018-02-23] MEDS ORDERED: Pantoprazole 80 MG in Sodium Chloride 0.9% 100 ML IVP SCH (11:30)
[2018-02-23] MEDS ORDERED: Rocuronium Bromide 50 MG/5 ML VIAL ONE (11:36)
[2018-02-23 12:03] LABS: Actual Bicarbonate (HCO3a) 9.9 mEq/L (22-28); Analyzer IN Cardio ER; Base Excess (BEa) -15.2 mEq/L (-2.0 to +3.0); Calcium, Ionized 1.01 mmol/L (1.12-1.30); Carboxyhemoglobin (COHb) 0.1 gm% (0.0-3.0); Hemoglobin (Hb) 6.4 g/dL (12.0-16.0); pH, Arterial 7.29 (7.35-7.45)
[2018-02-23 12:04] LABS: CO2 Tension 20.8 mmHg (35.0-45.0)
[2018-02-23 12:05] LABS: O2 Tension (PaO2) 565.5 mmHg (> 80.0); Puncture Site RR
[2018-02-23] MEDS ORDERED: Tranexamic Acid 1,000 MG/10 ML VIAL ONE (12:44)
[2018-02-23] MEDS ORDERED: Bisacodyl 10 MG SUPP PR PRN (12:50)
[2018-02-23] MEDS ORDERED: Ondansetron ODT 4 MG TAB SL PRN (12:50)
[2018-02-23] MEDS ORDERED: Ventilator Sedation Protocol 1 EACH FS SCH (12:50)
[2018-02-23] MEDS ORDERED: Ondansetron PF 4 MG/2 ML Vial IVP PRN (12:50)
[2018-02-23] MEDS ORDERED: Acetaminophen 325 MG TAB PER TUBE PRN (12:50)
[2018-02-23] MEDS ORDERED: CCU Electrolyte Replacement 1 EACH IVPB ONE (12:50)
[2018-02-23] MEDS ORDERED: Potassium Phosphate 12 MMOL in Sodium Chloride 0.9% 250 ML 250 ML IV PRN (12:52)
[2018-02-23] MEDS ORDERED: Fentanyl BOLUS 250 ML IVPB PRN (12:52)
[2018-02-23] MEDS ORDERED: CCU ELECTROLYTE REPLACEMENT PROTOCOL FS PRN (12:52)
[2018-02-23] MEDS ORDERED: DISCONTINUE PREVIOUS NARCOTIC PAIN MEDICATIONS AND BENZODIAZEPINES FS SCH (12:52)
[2018-02-23] MEDS ORDERED: Potassium Chloride 20 MEQ TAB PO PRN (12:52)
[2018-02-23] MEDS ORDERED: Lorazepam 2 MG/ML VIAL SLOW IVP PRN (12:52)
[2018-02-23] MEDS ORDERED: Potassium Chloride 40 MEQ in Sodium Chloride 0.9% 250 ML 250 ML IVPB PRN (12:52)
[2018-02-23] MEDS ORDERED: Potassium Phosphate 15 MMOL in Sodium Chloride 0.9% 250 ML 250 ML IV PRN (12:52)
[2018-02-23] MEDS ORDERED: Propofol BOLUS 1,000 MG/100 ML VIAL IV PRN (12:52)
[2018-02-23] MEDS ORDERED: Potassium Chloride 40 MEQ in Premix Bag 1 BAG IVPB PRN (12:52)
[2018-02-23] MEDS ORDERED: Potassium Phosphate 9 MMOL in Sodium Chloride 0.9% 100 ML IVPB PRN (12:52)
[2018-02-23] MEDS ORDERED: Magnesium Oxide 400 MG TAB PO PRN ×2 (12:52)
[2018-02-23] MEDS ORDERED: Magnesium 2 GM/NS 0.9% 100 ML 2 GM in Premix Bag 1 BAG IVPB PRN (12:52)
[2018-02-23] MEDS ORDERED: Propofol 1,000 MG/100 ML VIAL IV PRN (12:52)
[2018-02-23] MEDS ORDERED: Morphine 2 MG/ML SYRINGE SLOW IVP PRN (12:52)
[2018-02-23 13:14] LABS: Actual Bicarbonate (HCO3a) 16.7 mEq/L (22-28); Analyzer IN Cardio ER; Base Excess (BEa) -6.8 mEq/L (-2.0 to +3.0); CO2 Tension 26.1 mmHg (35.0-45.0); Calcium, Ionized 0.84 mmol/L (1.12-1.30); Carboxyhemoglobin (COHb) 0.3 gm% (0.0-3.0); Hemoglobin (Hb) 7.6 g/dL (12.0-16.0); Potassium - ABG Lab 4.66 mmol/L (3.70-5.30); Puncture Site RRA; pH, Arterial 7.43 (7.35-7.45)
[2018-02-23 13:15] LABS: ALV-art Gradient 216.775 (0-20)
[2018-02-23 13:26] LABS: Bilirubin Small (Negative); Blood, Urine Negative (Negative); Clarity CLOUDY (Clear); Glucose, Urine (Dipstick) Negative (Negative); Leukocyte Large (Negative); Nitrite Negative (Negative); Protein, Urine (Dipstick) 30 mg/dL (Neg-Trace); Specific Gravity, Urine 1.015 (1.002-1.036); pH, Urine 5.5 (5.0-9.0)
[2018-02-23 13:29] LABS: Bacteria/HPF 4+ HPF (None Seen); Pathc Cast-AUWi Flag 0.87 (0-2.49); Squamous Epithelial 0-3 HPF (0-3)
[2018-02-23 13:34] LABS: Hyaline Casts/LPF 0-3 HYALINE CAST LPF (0-3 Hyaline)
[2018-02-23 13:35] VITALS: BMI 20.8
[2018-02-23] MEDS ORDERED: DOPamine/D5W 400 mg/250 ml PREMIX ONE (14:05)
[2018-02-23] MEDS ORDERED: Sodium Bicarb 50 MEQ/50 ML Abboject 8.4% SYRINGE ONE (14:05)
[2018-02-23] MEDS ORDERED: EPINEPHrine 1 MG/10 ML Abboject SYRINGE ONE (14:05)
[2018-02-23 14:27] LABS: Actual Bicarbonate (HCO3a) 12.4 mEq/L (22-28); Base Excess (BEa) -8.9 mEq/L (-2.0 to +3.0); Calcium, Ionized 0.92 mmol/L (1.12-1.30); Carboxyhemoglobin (COHb) 0.6 gm% (0.0-3.0); O2 Tension (PaO2) 73.8 mmHg (> 80.0); Potassium - ABG Lab 3.17 mmol/L (3.70-5.30); pH, Arterial 7.49 (7.35-7.45)
[2018-02-23 14:28] LABS: CO2 Tension 16.6 mmHg (35.0-45.0); Puncture Site LRA
[2018-02-23 14:47] LABS: Troponin I 41.836 ng/mL (< 0.028)
[2018-02-23] MEDS: EPINEPHrine 4 MG in Dextrose 5% in Water 250 ML IV SCH ×3 (14:50→22:36)
--- NOTE | 2018-02-23 14:56 | HP ---
PRIMARY CARE PHYSICIAN: Indigo Armendariz, nurse practitioner. REASON FOR ADMISSION: Cardiac arrest, respiratory failure. HISTORY OF PRESENT ILLNESS: A 67-year-old female who is currently intubated after cardiac arrest in the emergency room. The patient is not able to provide any history, but the patient's sister and daughter are present at bedside, who provided history. The patient is sick since Tuesday. She was having low blood pressure. She was feeling very weak and dizzy and lightheaded. She was walking with stumbling. The patient lives at home with her granddaughter. The patient felt a little bit better on Tuesday because she stopped taking her blood pressure medication. She did cardiac rehab on Tuesday, but the patient was not feeling good. Her blood pressure was continuously remaining lower side. She did not report anybody about chest pain, fever, fall, or loss of consciousness, but family member noticed that she was stumbling and she was appeared very weak, her blood pressure was running very very low at home. Today, the patient's granddaughter called her mother that the patient was not doing well and she was more lethargic and stumbling, and that is why the patient's daughter saw her this morning when she was appeared very weak and lethargic, that is why she called Paramedics, and Paramedics brought her to emergency room. The patient was generally weak. She was feeling palpitation. Nobody knows about any blood in stool or any hematochezia or any melena. This morning, the patient also had a syncopal episode at home. When she was in the emergency room and tried to get x-rays, she had cardiac arrest, and subsequently 5-minute CPR was done. Epinephrine was given, and atropine was given. The patient had successful resuscitation. She required intubation. The patient was hypotensive, and that is why central line was placed in the left groin. During central line placement, the patient had another second time cardiac arrest, required 7 minutes of CPR and epinephrine, and the patient was getting epinephrine drip, and the patient had another successful CPR done in the emergency room. Family member was present at bedside and updated about the patient's condition. This patient has currently left IJ, left brachial vein as well as left groin central line. The patient is receiving blood transfusion. She is currently receiving epinephrine drip. ER physician already spoke with Cardiology a couple of times as well as Dr. Jaeger already informed from the ER about the patient's critical condition and admission to CCU. REVIEW OF SYSTEMS: All review of system tried to be reviewed with the patient, but unable to review at this point because the patient is intubated and unresponsive. PAST MEDICAL HISTORY: Based on previous medical record, the patient has coronary artery disease, medically managed; hypertension; dyslipidemia; history of vulvar cancer; chronic normocytic anemia; CKD stage 3; history of renal artery stenosis; peripheral vascular disease; hypothyroidism; protein-calorie malnutrition. PAST PSYCHIATRIC HISTORY: Anxiety and depression. PAST SURGICAL HISTORY: CABG in 1995, cardiac catheterization with stent placement, cholecystectomy, left renal artery stent placement, hysterectomy. ALLERGIES: NO KNOWN DRUG ALLERGY. FAMILY HISTORY: Positive for coronary artery disease and COPD among several family members. SOCIAL HISTORY: The patient lives in [place], [place], along with family. She has two daughters, and she lives with a granddaughter. She has a smoking history, about half pack per day. She does drink alcohol occasionally. No illicit drug abuse history. CURRENT HOME MEDICATIONS: Based on our hospital record, the patient is on following medications: 1. Xanax 0.5 mg p.o. at bedtime p.r.n. 2. Aspirin 325 mg p.o. daily. 3. Calcium carbonate 600 mg p.o. daily. 4. Coreg 12.5 mg p.o. b.i.d. 5. Lasix 20 mg p.o. daily. 6. Hydralazine 25 mg t.i.d. 7. Imdur 60 mg p.o. daily. 8. Protonix 40 mg daily. 9. Potassium chloride 10 mEq p.o. daily. 10. Lipitor 40 mg p.o. at bedtime. 11. Ferrous sulfate 325 mg p.o. daily. 12. Levothyroxine 25 mcg p.o. daily. EMERGENCY ROOM COURSE: The patient had one time CPR for cardiac arrest. At that time, the patient was given epinephrine x1, and the patient had second time CPR. At that time, the patient was given epinephrine x2, bicarbonate given x2. The patient is started on Protonix drip. Etomidate and rocuronium were given with intubation. Epinephrine drip is going on. The patient is also given 2 doses of atropine, digoxin 0.5 mg, and IV fluid. PHYSICAL EXAMINATION: VITAL SIGNS: Most recent vital signs after a couple of times of successful resuscitation; the patient's blood pressure is 87/45, pulse 60, respiratory rate 18 on ventilator, saturation 98% on ventilator. Weight 41.7 kg. GENERAL: The patient is currently unresponsive, intubated. HEENT: Head; normocephalic, atraumatic. Eyes; pupils are round, reactive to light. Pale conjunctiva. ENT; endotracheal tube in place. Pale mucous membranes. NECK: Supple. No JVD. No thyromegaly. No carotid bruit. LUNGS: Clear to auscultation without any rhonchi anteriorly. CARDIAC: S1 and S2 regular. Unable to elicit murmur. No gallop. No rub. ABDOMEN: Soft. Bowel sounds present. No distention. No peritoneal sign. No rigidity. BACK: Unremarkable. EXTREMITIES: Upper extremities; passive movement of all joints is normal. Lower extremities; no edema, good distal pulsation. SKIN: Warm. No rash. NEUROLOGICAL: Unable to assess at this point. PSYCHIATRIC: Unable to assess at this point. SIGNIFICANT LABORATORY DATA: Initial EKG showed atrial fibrillation with controlled ventricular response with ST depression in anterior leads. Subsequent EKG also showed atrial fibrillation with controlled ventricular response. Chest x-ray ordered. CBC; WBC 6.5, hemoglobin 7.0, platelets 204. ABG; pH 7.29, CO2 of 20.8, O2 of 65.5, saturation 99.2, bicarb 9.9. BMP; sodium 139, potassium 4.7, chloride 107, carbon dioxide 15, anion gap 22, BUN 46, creatinine 2.73, glucose 147. Lactic acid 3.3. Calcium 9.0. LFT; AST 70, ALT 11, alkaline phosphatase 81, albumin 3.4. CK is 957, CK-MB 177.5. Troponin I 29.7. Stool for guaiac was negative. ASSESSMENT AND PLAN: 1. Acute cardiac arrest. The patient required 2 times CPR for cardiac arrest in the emergency room. After epinephrine, atropine, bicarbonate, and CPR, the patient successfully resuscitated twice. First time, the patient required 5 minutes, and second time she required almost 7 minutes of CPR. The patient is at risk for anoxic brain injury. At this point, the patient is intubated. Ventilatory support is initiated. Cardiology and Pulmonary group were consulted. The patient will need ICU admission. Her prognosis is very poor. Prognosis is discussed with the patient's daughter and other family member at bedside in the emergency room. We will support her, and we will watch closely. At this point, family member wanted to keep her full code. 2. Acute coronary syndrome with non-ST elevation myocardial infarction. This patient has significantly abnormal troponin as well as the patient does have EKG changes on admission. The patient already has known coronary artery disease, on medical therapy, and she already had coronary artery bypass grafting done in the past. Cardiology already consulted. We will obtain echocardiography. 3. Severe symptomatic anemia. The patient has severe anemia. Guaiac is negative. Her hemoglobin is chronically low, but significantly dropped over a period of time. The patient has received 1 unit of blood transfusion. We will repeat CBC and we will monitor hemoglobin and hematocrit. At this point, the patient is not a candidate for any kind of intervention other than supportive care until the patient is stabilized. 4. Severe metabolic acidosis, likely due to hypoperfusion. The patient is given bicarbonate. The patient may benefit from bicarbonate drip. We will defer that part to Pulmonary and Critical Care. 5. Acute on chronic kidney failure, baseline chronic kidney disease stage 3. We will monitor renal function. We are expecting that with this low blood pressure and hypoperfusion, the patient's renal function may get worse. 6. Lactic acidosis that is also part of hypoperfusion. 7. Suspected gastrointestinal bleed. At this point, the patient has significant anemia. Guaiac is negative. The patient will be kept on Protonix drip. 8. Acute respiratory failure with hypoxia. The patient is intubated. Pulmonary group will be consulted. They will manage ventilator. Ventilator sedation protocol initiated. We will monitor daily labs as well as x-ray while on intubation. 9. Cardiogenic shock. At this point, we will continue epinephrine drip as ordered to maintain perfusion. Cardiology and Pulmonary on the case. 10. History of coronary artery disease, currently on medical therapy. 11. History of hypertension, dyslipidemia, gastroesophageal reflux disease, hypothyroidism, anxiety, and depression. All problems are currently chronic, and we will address when the patient's condition is stabilized. 12. Deep vein thrombosis prophylaxis; SCD boots. 13. Gastrointestinal prophylaxis; the patient is on Protonix. CODE STATUS: The patient is full code. The patient's daughter is surrogate decision maker. DISPOSITION PLAN: Based on clinical course. Her prognosis is extremely poor. Condition is critical care. Total time spent providing critical care to this patient in the emergency room is 35 minutes. Job ID: [id number]
[2018-02-23 15:29] LABS: Lactic Acid 10.2 mmol/L (0.5-2.2)
[2018-02-23] MEDS: Norepinephrine 8 MG/0.9% NS 250 ML IVPB PRN ×2 (16:17→22:37)
--- NOTE | 2018-02-23 17:33 | CON ---
DATE OF CONSULTATION: 02/23/2018 REASON FOR CONSULTATION: Cardiac arrest. HISTORY OF PRESENT ILLNESS: Ms. Gooden is an unfortunate 67-year-old patient of Dr. George Joshua. She has a history of CAD, status post bypass surgery, in addition to stent placement. She also has severe peripheral vascular disease, renal insufficiency, and chronic anemia. She represented to the emergency room with weakness and fatigue. The history is obtained from the ER physician, in addition to her family. No specific episodes of chest pain, pressure, or significant shortness of breath. She was found to be hypotensive while in the emergency room. She was also found to be in new onset atrial fibrillation with abnormal EKG suggesting subendocardial ischemia versus a posterior infarct. I quickly reviewed her films. She underwent coronary angiography [address] George Joshua, and showed a complete occlusion of the saphenous vein graft to the right coronary artery. She also had a small circumflex artery with a 90% stenosis to the circumflex artery. This was not felt to be big enough for further intervention. After recommendations to the emergency room, the patient lost pulse and coded. She was coded x2. She did regain blood pressure and heart rate. She was intubated. Initial blood gas was 6.4. Initially, blood tests were not available. After she coded, blood tests were available, suggesting a hemoglobin of 7 with a creatinine of 2.7 and a GFR of 21. The patient also had a lactic acid level of 10.2. Initial troponin was 29 with a CK-MB of 177. The patient was transfused and transferred to the ICU. PAST MEDICAL HISTORY: Hyperlipidemia; hypertension; tobacco abuse; severe CAD; ischemic cardiomyopathy; renal artery stenosis, status post stent placement; hyponatremia; hypothyroidism; depression; left elbow fracture; and cholecystectomy. ALLERGIES: NONE. HOME MEDICATIONS: 1. Potassium. 2. Protonix. 3. Atorvastatin. 4. Plavix. 5. Tirosint. 6. Iron sulfate. 7. Lasix. 8. Aspirin. 9. Carvedilol. 10. Alprazolam. 11. Vitamin B12. 12. Hydralazine. 13. Isosorbide. REVIEW OF SYSTEMS: Unobtainable. She is currently intubated. PHYSICAL EXAMINATION: VITAL SIGNS: Blood pressure 115/79, pulse 80, and temperature afebrile. She is currently on epinephrine for blood pressure support. GENERAL: Patient is a pleasant female who is in no acute distress. The patient appears their stated age. She is currently nonverbal. Does not awaken to voice. NEUROLOGIC: The patient is alert and oriented x3 with no focal neurologic deficits. HEENT: Sclerae without icterus. Mouth has moist mucous membranes with normal pallor. NECK: No JVD. Carotid upstroke brisk. No bruits bilaterally. LUNGS: Clear to auscultation with unlabored respirations. BACK: No scoliosis or kyphosis. CARDIAC: Regular rate and rhythm with normal S1 and S2. No S3 or S4 noted. No significant rubs, murmurs, thrills, or gallops noted throughout the precordium. PMI is not displaced. There is no parasternal heave. ABDOMEN: Soft, nontender, nondistended. No peritoneal signs present. No hepatosplenomegaly. No abnormal striae. EXTREMITIES: 2+ femoral and 2+ dorsalis pedis pulses. No cyanosis, clubbing, or edema. SKIN: No gross abnormalities. LABORATORY DATA: Pertinent labs as above including a lactic acid level of 10.2. White blood cell count 6.5 and platelet count 204. Initial blood gas with a pH of 6.4 per ER, followup pH is 7.29 with a pCO2 of 20, pO2 of 565. IMPRESSION: 1. Cardiac arrest. 2. ST-T wave changes suggesting acute infarct versus diffuse subendocardial ischemia. 3. Respiratory failure. 4. Atrial fibrillation. 5. Severe coronary artery disease. 6. Cardiomyopathy. 7. Cardiogenic shock. RECOMMENDATIONS: At this point, we will continue supportive care. I had a long discussion with the family. She has two daughters and is not . I discussed the grave situation to the family. I also discussed case with Dr. George Joshua. At this point, I recommend continued supportive care. She is being transfused. We would not proceed with coronary angiography urgently given her hemoglobin, in addition to acute on chronic kidney disease with a GFR of 21. She did present with hypotension and likely had underlying demand ischemia from her comorbidities. This may have also been an acute event, although unlikely given her presentation of symptoms for 1 week with no acute event per family. DNR was discussed with Ms. Gooden' family. At this point, they would like to discuss it. I did spend 45 minutes of critical care time with Ms. Gooden as well as her family and discussion with Dr. Ben Jaeger, ER physician, and Dr. George Joshua. Job ID: [id number]
[2018-02-23 18:15] LABS: Troponin I 58.222 ng/mL (< 0.028)
[2018-02-23] MEDS: Acetaminophen 650 MG Suppository PR PRN (19:08)
[2018-02-23] MEDS: Sodium Chloride 0.9% 1,000 ML IV SCH (21:00)
[2018-02-23] MEDS: Pantoprazole 80 MG in Sodium Chloride 0.9% 100 ML IVPB SCH (21:07)
[2018-02-24] MEDS: fentaNYL Citrate/PF 2,000 MCG in Sodium Chloride 0.9% 60 ML IV SCH (01:07)
--- NOTE | 2018-02-24 01:12 | CON ---
DATE OF CONSULTATION: HISTORY OF PRESENT ILLNESS: Cyndee Gooden is a 67-year-old female who presented to the emergency room today and subsequently arrested twice. She was transferred up to the critical care unit. I was consulted to assist in her management. Apparently, has been feeling poorly for a week. She had an altered mental status when she arrived today. Apparently, had syncope at home. She had CPR twice today. PAST MEDICAL HISTORY: 1. Remarkable for coronary artery disease, is not felt to be re-operable. She has a history of coronary artery bypass grafting in the past. 2. History of hypertension. 3. Lipid disorder. 4. History of vulvar cancer. 5. History of chronic kidney disease. 6. History of renal artery stenosis. 7. Peripheral vascular disease. 8. Hypothyroidism. 9. Anxiety and depression. 10. History of malnutrition. 11. History of coronary artery bypass grafting in 1995. 12. History of a stent placement in the past. 13. History of cholecystectomy. 14. History of a renal artery stent. 15. Status post hysterectomy. SOCIAL HISTORY: She is a half pack-a-day smoker. She rarely drinks. ALLERGIES: SHE HAS NO DRUG ALLERGIES. FAMILY HISTORY: Positive for COPD and vascular disease. MEDICATIONS: Prescription drugs have been reviewed. There are 12. REVIEW OF SYSTEMS: Not obtainable. PHYSICAL EXAMINATION: GENERAL: She is on an epinephrine drip. VITAL SIGNS: Heart rates in the 80s, blood pressure 86/65, respiratory rates in the 20s. HEENT: Pupils sluggish. Extraocular movements could not be assessed. Sclerae are anicteric. NECK: Supple. LUNGS: Remarkable for mild rhonchi anteriorly. HEART: Regular rhythm. S1 and S2 are normal. ABDOMEN: Soft and nontender. EXTREMITIES: Without clubbing, cyanosis, or edema. LABORATORY DATA: White count 6.5, hemoglobin 7.0. She was transfused 2 units. Post transfusion, hemoglobin was 10.0. PH 7.49, CO2 16, pO2 73. Sodium 139, potassium 4.7, chloride 107, bicarb 15, BUN 46, creatinine 2.73 this morning. IMPRESSION: 1. Status post myocardial infarction with a troponin on arrival of 29 that went up to 41. This has probably been the reason she has been feeling poorly all week. 2. Status post cardiac arrest, it was witnessed. 3. Chronic kidney disease with an acute insult today. 4. Diabetes. PLAN: Continue supportive care. Prognosis is quite guarded. Critical care time 30 minutes. Job ID: [id number]
--- NOTE | 2018-02-24 01:27 | OP ---
DATE OF PROCEDURE: 02/23/2018 PROCEDURE: Arterial line placement attempts. DESCRIPTION OF PROCEDURE: The patient's right groin and left groin were prepped with chlorhexidine. I could feel weak pulse on both sides. Attempts at cannulating femoral artery with a five-Serbian introducer needle unsuccessful on either side. I did send a blood gas on the blood that was obtained where the cultures were obtained and this was venous blood. The procedure was terminated. I spent approximately 25 minutes attempting on both sides and could not obtain a good femoral arterial line. Job ID: [id number]
[2018-02-24] MEDS: EPINEPHrine 4 MG in Dextrose 5% in Water 250 ML IV SCH ×5 (02:24→20:05)
[2018-02-24] MEDS: Sodium Chloride 0.9% 1,000 ML IV SCH ×3 (04:30→20:07)
[2018-02-24 05:24] LABS: Phosphorus 4.1 mg/dL (2.3-4.7)
[2018-02-24 05:28] LABS: Lactic Acid 6.3 mmol/L (0.5-2.2)
[2018-02-24 05:31] LABS: ALT (SGPT) 166 U/L (8-55); AST (SGOT) 315 U/L (5-34); Albumin 2.2 g/dL (3.4-4.8); Alkaline Phosphatase 110 U/L (40-150); Anion Gap 16 mmol/L (10-20); BUN (Urea Nitrogen) 46 mg/dL (9.8-20.1); Bilirubin, Total 0.8 mg/dL (0.2-1.2); Calc. Creatinine Clearance 12 mL/min (70-130); Calcium 6.9 mg/dL (7.8-10.44); Carbon Dioxide 15 mmol/L (23-31); Chloride 113 mmol/L (98-107); Estimated GFR-MDRD 17; Globulin 1.9 g/dL (2.4-3.5); Glucose 141 mg/dL (80-115); Potassium 4.7 mmol/L (3.5-5.1); Protein, Total 4.1 g/dL (6.0-8.3); Sodium 139 mmol/L (136-145)
[2018-02-24] MEDS: Norepinephrine 8 MG/0.9% NS 250 ML IVPB PRN ×3 (05:41→18:26)
[2018-02-24] MEDS: Pantoprazole 80 MG in Sodium Chloride 0.9% 100 ML IVPB SCH ×2 (05:41→19:10)
[2018-02-24 05:50] LABS: Band 36 % (5-11); Burr Cells SLIGHT = 2-5 cells (100X) (0-1/hpf); Hemoglobin 11.5 g/dL (12.0-16.0); Lymphocytes 22 % (21-51); MDiff Complete? YES; Mean Corpuscular HGB CONC 32.5 g/dL (32.0-36.0); Mean Corpuscular Hemoglobin 28.1 pg (27.0-31.0); Mean Corpuscular Volume 86.6 fL (78.0-98.0); Monocytes 1 % (0-10); Neutrophil 41 % (42-75); Nucleated RBC 5 % (0); Platelet Count 155 thou/uL (130-400); RBC Distribution Width 16.7 % (11.5-14.5); Red Blood Cell (RBC) Count 4.07 mill/uL (4.20-5.40); White Blood Cell (WBC) Count 16.2 thou/uL (4.8-10.8)
--- NOTE | 2018-02-24 08:38 | PDOC.CTH ---
Cardiology Progress Note - Subjective The pt seen and examined. No overnight events. No cardiac complaints. She is alerted and follows commands now. - Objective Vital Signs Temp Pulse Resp BP Pulse Ox 02/24/18 08:00 20 02/24/18 07:58 72 95/57 L 02/24/18 07:19 99 02/24/18 06:00 20 02/24/18 04:00 98.7 F 22 H 02/24/18 03:00 98.6 F 02/24/18 02:38 68 02/24/18 02:00 20 02/24/18 00:00 98.7 F 20 02/23/18 22:00 79 20 Weight 99 lb 10.383 oz 02/23/18 02/24/18 02/25/18 06:59 06:59 06:59 Intake Total 3492.6 0 Output Total 245 0 Balance 3247.6 0 - Physical Examination General/Neuro: alert & oriented x3 Neck: no JVD present Lungs: other: (diminished at bases) Heart: RRR Abdomen: soft Extremities: other: (mild generalized edema) - Telemetry Telemetry Rhythm: SR - Labs Result Diagrams: 02/24/18 04:35 02/24/18 04:35 Troponin/CKMB CK-MB (CK-2) 177.5 ng/mL (0-6.6) H* 02/23/18 10:12 Troponin I 58.222 ng/mL (< 0.028) H* 02/23/18 17:03 - Assessment/Plan 1. S/p cardiac arrest on 02/23/18 - the pt is alerted this AM. Cont. Mechanical vent support 2. New-onset afib - remains in SR at this AM; Cont. to monitor on tele 3. CAD with hx of stent in 03/1995 and CABG in 06/1995 4. CKD - Worsened today; on NS 125ml/h 5. HTN - stable with epi and Levophed 6. DM type 2 - managed by PCP 7. Hyperlipidemia - 8. PAD - 9. Hypothyroidism - 10. Chronic Anemia - improved after 1 unit tx yesterday 11. Smoker - smoking cessation education given to the pt and family MAR reviewed Pt. seen and eval. by me. I agree with the A/p by the METAL MACHINE SETTER. She remains on the ventilator. She has diffuse CAD and vascualr disease.. The echo today indicartes an EF 30-35%. 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 Overall poor prognosis. Not a candidate for anticoagulation with a Hgb. 7 on admissiion and a recent GI bleed. Chest clear anteriorly. RRR. No significant edema. Review of Systems - Review of Systems Constitutional: reports: no symptoms reported EENTM: reports: no symptoms reported Respiratory: reports: no symptoms reported Cardiac (ROS): reports: no symptoms reported ABD/GI: reports: no symptoms reported : reports: no symptoms reported
[2018-02-24] MEDS: cefTRIAXone\\ROCEPHIN 1 GM in Sodium Chloride 0.9% 100 ML IVPB SCH (08:47)
--- NOTE | 2018-02-24 09:12 | RAD ---
PORTABLE CHEST: Date: 02/24/18 HISTORY: Shortness of breath. CCU follow-up. The most recent comparison film is from 06/13/15. There is complete opacification of the left lung, indicating dense diffuse consolidation. There are p atchy areas of infiltrate in the right mid and lower lung, which is suboptimally evaluated due to ove rlying artifact. An ET tube has been placed and the tip is directed in the right mainstem bronchus. A NG tube is in place and appears adequately positioned. IMPRESSION: 1. ET tube is directed into the right mainstem bronchus. 2. Diffuse opacification of the left lung and patchy areas of infiltrate throughout the right lung. POS: TPC
[2018-02-24] MEDS ORDERED: EPINEPHrine 1 MG/10 ML Abboject SYRINGE ONE (11:11)
--- NOTE | 2018-02-24 11:29 | PDOC.PN ---
- Subjective Encounter Start Date: 02/24/18 Encounter Start Time: 09:30 -: old records requested/rev pt is alert on vent, follows command, family bedside, on epi drip Patient seen and examined. No overnight events - Objective Resuscitation Status - Order Detail: 02/23/18 12:44 Resuscitation Status Routine Resuscitation Status: FULL: Full Resuscitation MAR Reviewed: Yes Vital Signs & Weight: Vital Signs (12 hours) Temp Pulse Resp BP Pulse Ox 02/24/18 10:00 23 H 02/24/18 08:00 20 02/24/18 07:58 72 95/57 L 02/24/18 07:19 99 02/24/18 06:00 20 02/24/18 04:00 98.7 F 22 H 02/24/18 03:00 98.6 F 02/24/18 02:38 68 02/24/18 02:00 20 02/24/18 00:00 98.7 F 20 Weight Weight 99 lb 10.383 oz Most Recent Monitor Data Heart Rate from ECG 74 NIBP 92/53 NIBP BP-Mean 66 Respiration from ECG 22 SpO2 98 I&O: 02/23/18 02/24/18 02/25/18 06:59 06:59 06:59 Intake Total 3492.6 0 Output Total 245 15 Balance 3247.6 -15 Result Diagrams: 02/24/18 04:35 02/24/18 04:35 Radiology Reviewed by me: Yes (chest xray and echo reviewed) EKG Reviewed by me: Yes (nsr) Phys Exam - Physical Examination Constitutional: NAD intubated, awake on vent HEENT: PERRLA, sclera anicteric Neck: no JVD, supple Respiratory: no wheezing, no rhonchi basal rales Cardiovascular: RRR, no rub SM+ at apex Gastrointestinal: soft, non-tender, no distention, positive bowel sounds Musculoskeletal: no edema, pulses present Neurological: moves all 4 limbs Lymphatic: no nodes Skin: no rash Dx/Plan (1) Cardiac arrest Code(s): I46.9 - CARDIAC ARREST, CAUSE UNSPECIFIED Status: Acute (2) Acute respiratory failure with hypoxemia Code(s): J96.01 - ACUTE RESPIRATORY FAILURE WITH HYPOXIA Status: Acute (3) Cardiogenic shock Code(s): R57.0 - CARDIOGENIC SHOCK Status: Acute (4) Cardiomyopathy Code(s): I42.9 - CARDIOMYOPATHY, UNSPECIFIED Status: Acute (5) Severe mitral regurgitation Code(s): I34.0 - NONRHEUMATIC MITRAL (VALVE) INSUFFICIENCY Status: Acute (6) Paroxysmal atrial fibrillation Code(s): I48.0 - PAROXYSMAL ATRIAL FIBRILLATION Status: Acute (7) Acute worsening of stage 3 chronic kidney disease Code(s): N18.3 - CHRONIC KIDNEY DISEASE, STAGE 3 (MODERATE) Status: Acute (8) Lactic acidosis Code(s): E87.2 - ACIDOSIS Status: Acute (9) Metabolic acidosis Code(s): E87.2 - ACIDOSIS Status: Acute (10) NSTEMI (non-ST elevated myocardial infarction) Code(s): I21.4 - NON-ST ELEVATION (NSTEMI) MYOCARDIAL INFARCTION Status: Acute (11) Severe anemia Code(s): D64.9 - ANEMIA, UNSPECIFIED Status: Acute (12) Transaminitis Code(s): R74.0 - NONSPEC ELEV OF LEVELS OF TRANSAMNS & LACTIC ACID DEHYDRGNSE Status: Acute (13) Anxiety and depression Code(s): F41.9 - ANXIETY DISORDER, UNSPECIFIED; F32.9 - MAJOR DEPRESSIVE DISORDER, SINGLE EPISODE, UNSPECIFIED Status: Chronic (14) CAD (coronary artery disease) Code(s): I25.10 - ATHSCL HEART DISEASE OF [place] CORONARY ARTERY W/O ANG PCTRS Status: Chronic (15) DM2 (diabetes mellitus, type 2) Status: Chronic (16) Dyslipidemia Code(s): E78.5 - HYPERLIPIDEMIA, UNSPECIFIED Status: Chronic (17) GERD (gastroesophageal reflux disease) Code(s): K21.9 - GASTRO-ESOPHAGEAL REFLUX DISEASE WITHOUT ESOPHAGITIS Status: Chronic (18) Hypothyroidism Code(s): E03.9 - HYPOTHYROIDISM, UNSPECIFIED Status: Chronic (19) Protein-calorie malnutrition, moderate Code(s): E44.0 - MODERATE PROTEIN-CALORIE MALNUTRITION Status: Chronic (20) Tobacco abuse Code(s): Z72.0 - TOBACCO USE Status: Chronic - Plan cont current plan of care, plan discussed w/ family, continue antibiotics * will add rocephin for UTI * continue vent as per pulmonary * cardiology following * monitor labs * discussed with family and answered their all questions * medication reviewed as below * symptomatic treatment * pt has improvement today. Review of Systems - Review of Systems Other: unable to review due to intubated status - Medications/Allergies Allergies/Adverse Reactions: Allergies Allergy/AdvReac Type Severity Reaction Status Date / Time No Known Allergies Allergy Verified 07/01/17 01:28 Medications: Current Medications Acetaminophen (Tylenol) 650 mg VA Q4H PRN PRN Reason: Headache/Fever/Mild Pain (1-3) Last Admin: 02/23/18 19:08 Dose: 650 mg Acetaminophen (Tylenol) 650 mg PER TUBE Q4H PRN PRN Reason: Headache/Fever/Mild Pain (1-3) Albuterol/Ipratropium (Duoneb) 3 ml NEB [id number] PRN PRN Reason: SOB &/or Wheezing Bisacodyl (Dulcolax) 10 mg VA DAILYPRN PRN PRN Reason: Constipation Norepinephrine Bitartrate (Levophed) 250 mls @ 0 mls/hr IVPB PRN PRN; Protocol PRN Reason: To maintain MAP > 65 Last Admin: 02/24/18 05:41 Dose: 250 mls Pantoprazole Sodium 80 mg/ (Sodium Chloride) 100 mls @ 10 mls/hr IVPB INF GINA Last Admin: 02/24/18 05:41 Dose: 100 mls Fentanyl Citrate 2,000 mcg/ (Sodium Chloride) 100 mls @ 0 mls/hr IV INF GINA; Protocol Stop: 03/25/18 12:52 Last Admin: 02/24/18 01:07 Dose: 100 mls Fentanyl Citrate (Fentanyl Bolus) 250 mls @ 0 mls/hr IVPB PRN PRN PRN Reason: Breakthrough pain/agitation Stop: 03/25/18 12:52 Potassium Chloride 40 meq/ (Sodium Chloride) 270 mls @ 135 mls/hr IVPB ASDIR PRN PRN Reason: FOR SERUM K+ 2.5 - 3.5 Potassium Chloride 40 meq/ (Device) 100 mls @ 50 mls/hr IVPB ASDIR PRN PRN Reason: FOR SERUM K+ 2.5 - 3.5 Last Admin: 02/23/18 15:24 Dose: 100 mls Magnesium Sulfate 1 gm/ Sodium (Chloride) 102 mls @ 102 mls/hr IV PRN PRN PRN Reason: MAG LEVEL 1.4 - 2.0 Magnesium Sulfate 2 gm/ Device 100 mls @ 100 mls/hr IVPB ASDIR PRN PRN Reason: MAGNESIUM < 1.4 Potassium Phosphate 9 mmol/ (Sodium Chloride) 103 mls @ 25.75 mls/hr IVPB ASDIR PRN PRN Reason: Phosphate 1.0-1.8 Potassium Phosphate 12 mmol/ (Sodium Chloride) 254 mls @ 63.5 mls/hr IV ASDIR PRN PRN Reason: Serum phosphate 0.5-0.9 Potassium Phosphate 15 mmol/ (Sodium Chloride) 255 mls @ 63.75 mls/hr IV ASDIR PRN PRN Reason: Serum Phos < 0.5 Epinephrine 4 mg/ Dextrose/ (Water) 254 mls @ 0 mls/hr IV INF GINA; Protocol Last Admin: 02/24/18 07:14 Dose: 254 mls Sodium Chloride (Normal Saline 0.9%) 1,000 mls @ 125 mls/hr IV .Q8H [facility] Last Admin: 02/24/18 04:30 Dose: 1,000 mls Ceftriaxone Sodium 1 gm/ (Sodium Chloride) 100 mls @ 200 mls/hr IVPB Q24HR [facility] Last Admin: 02/24/18 08:47 Dose: 100 mls Lorazepam (Ativan) 2 mg SLOW IVP Q1H PRN PRN Reason: Breakthrough agitation Stop: 03/25/18 12:52 Magnesium Oxide (Magnesium Oxide) 400 mg PO BIDPRN PRN PRN Reason: FOR SERUM MAG 1.4 - 2.0 Magnesium Oxide (Magnesium Oxide) 800 mg PO PRN PRN PRN Reason: FOR SERUM MAG < 1.4 Miscellaneous Medication (Phos-Nak) 1 pkt PO TIDPRN PRN PRN Reason: FOR PHOS LEVEL 1.0 - 1.8 Miscellaneous Medication (Phos-Nak) 2 pkt PO TIDPRN PRN PRN Reason: FOR PHOS LEVEL 0.5 - 1.0 Morphine Sulfate (Morphine) 2 mg SLOW IVP Q1H PRN PRN Reason: BREAKTHROUGH PAIN/Agitation Stop: 03/25/18 12:52 Last Admin: 02/24/18 00:51 Dose: 2 mg Discontinue Previous Narcotic Pain Medications And Benzodiazepines 1 each FS .ONE GINA Stop: 03/25/18 12:52 Ccu Electrolyte (Replacement Protocol) 0 each FS PRN PRN PRN Reason: FOR ELECTROLYTE REPLACEMENT Ondansetron HCl (Zofran Odt) 4 mg SL Q6H PRN PRN Reason: Nausea/Vomiting Ondansetron HCl (Zofran) 4 mg IVP Q6H PRN PRN Reason: Nausea/Vomiting Potassium Chloride (K-Dur) 40 meq PO ASDIR PRN PRN Reason: FOR SERUM K+ 2.5 - 3.5 Potassium Chloride (Klor-Con) 40 meq PER TUBE ASDIR PRN PRN Reason: FOR SERUM K+ 2.5-3.5 Propofol (Diprivan) 1,000 mg IV INF PRN; Protocol PRN Reason: TO ACHIEVE GOAL RASS Stop: 03/25/18 12:52 Propofol (Diprivan Bolus) 20 mg IV Q5MIN PRN PRN Reason: BREAKTHROUGH AGITATION Stop: 03/25/18 12:52
[2018-02-24 11:50] LABS: Actual Bicarbonate (HCO3a) 13.7 mEq/L (22-28); Base Excess (BEa) -10.6 mEq/L (-2.0 to +3.0); CO2 Tension 26.3 mmHg (35.0-45.0); Calcium, Ionized 0.99 mmol/L (1.12-1.30); Carboxyhemoglobin (COHb) 0.9 gm% (0.0-3.0); Hemoglobin (Hb) 11.5 g/dL (12.0-16.0); Potassium - ABG Lab 4.29 mmol/L (3.70-5.30); pH, Arterial 7.34 (7.35-7.45)
[2018-02-24 11:51] LABS: O2 Tension (PaO2) 58.9 mmHg (> 80.0)
[2018-02-24 11:52] LABS: Puncture Site RBA
[2018-02-24 11:53] LABS: ALV-art Gradient 336.025 (0-20)
--- NOTE | 2018-02-24 14:55 | PRG ---
DATE OF SERVICE: 02/24/2018 SUBJECTIVE: Ms. Gooden did well overnight after code and awakened. She nods appropriately, moves all of her extremities surprisingly. Blood pressure 102/57, heart rate 72, respiratory rate is 20, oximetry is 100%. She had I believe she had left lung atelectasis associated with predominant right-sided ventilation. Tube has been pulled . She also has radiographic findings consistent with pulmonary edema. OBJECTIVE: LUNGS: Surprisingly unremarkable, only crackles laterally and posteriorly. HEART: Regular rhythm. ABDOMEN: Soft and nontender. EXTREMITIES: Warm. She has no peripheral edema. LABORATORY DATA: White count 16.2, hemoglobin 11.5, and platelets 155. Sodium 139, potassium 4.7, chloride 113, bicarb 15, BUN 46, creatinine 3.25. Creatinine was 2.73 yesterday. Intake and output positive 3247. IMPRESSION: Status post several cardiac arrests yesterday, likely associated with myocardial infarction and metabolic acidosis. Once her acidemia was corrected, she stabilized. She does not appear to have any anoxic brain injury. Her troponin when last checked yesterday afternoon was 58. She is not ready for extubation in my opinion, I met with family and answered all their questions. pH is 7.34, CO2 of 26, pO2 of 58. A part of her metabolic acidosis is related to probably low cardiac output combined with renal insufficiency combined with hyperchloremia. She is still on epinephrine and Levophed. We will try and wean the epinephrine first. Critical care time 30 minutes. Job ID: [id number]
[2018-02-24] MEDS: Acetaminophen 650 MG Suppository PR PRN (20:21)
[2018-02-25] MEDS: EPINEPHrine 4 MG in Dextrose 5% in Water 250 ML IV SCH ×3 (01:06→21:41)
[2018-02-25] MEDS: Norepinephrine 8 MG/0.9% NS 250 ML IVPB PRN ×3 (01:07→21:41)
[2018-02-25] MEDS: Pantoprazole 80 MG in Sodium Chloride 0.9% 100 ML IVPB SCH ×2 (05:09→16:15)
[2018-02-25] MEDS: Sodium Chloride 0.9% 1,000 ML IV SCH ×3 (05:09→21:40)
[2018-02-25 06:09] LABS: ALT (SGPT) 90 U/L (8-55); AST (SGOT) 132 U/L (5-34); Albumin 2.1 g/dL (3.4-4.8); Alkaline Phosphatase 97 U/L (40-150); Anion Gap 10 mmol/L (10-20); BUN (Urea Nitrogen) 49 mg/dL (9.8-20.1); Bilirubin, Total 0.8 mg/dL (0.2-1.2); Calc. Creatinine Clearance 10 mL/min (70-130); Calcium 6.9 mg/dL (7.8-10.44); Carbon Dioxide 16 mmol/L (23-31); Chloride 112 mmol/L (98-107); Estimated GFR-MDRD 14; Globulin 1.9 g/dL (2.4-3.5); Glucose 94 mg/dL (80-115); Potassium 4.4 mmol/L (3.5-5.1); Sodium 134 mmol/L (136-145)
[2018-02-25 06:35] LABS: Band 30 % (5-11); Burr Cells SLIGHT = 2-5 cells (100X) (0-1/hpf); Hemoglobin 9.7 g/dL (12.0-16.0); Lymphocytes 7 % (21-51); MDiff Complete? YES; Mean Corpuscular HGB CONC 31.9 g/dL (32.0-36.0); Mean Corpuscular Hemoglobin 27.8 pg (27.0-31.0); Mean Corpuscular Volume 87.2 fL (78.0-98.0); Mean Platelet Volume 9.9 fL (7.4-10.4); Metamyelocyte 4 % (0-0); Monocytes 3 % (0-10); Myelocyte 1 % (0-0); Neutrophil 55 % (42-75); Nucleated RBC 2 % (0); PLT Morphology Comment Appears Decreased; Platelet Count 113 thou/uL (130-400); Poikilocytosis SLIGHT = 6-15 cells (100X) (0-5/hpf); Polychromasia SLIGHT = 2-3 cells (100X) (0-2/hpf); RBC Distribution Width 17.1 % (11.5-14.5); Red Blood Cell (RBC) Count 3.46 mill/uL (4.20-5.40); White Blood Cell (WBC) Count 17.1 thou/uL (4.8-10.8)
[2018-02-25] MEDS: cefTRIAXone\\ROCEPHIN 1 GM in Sodium Chloride 0.9% 100 ML IVPB SCH (08:23)
--- NOTE | 2018-02-25 09:03 | PDOC.PN ---
- Subjective Encounter Start Date: 02/25/18 Encounter Start Time: 07:45 Patient seen and examined. No overnight events she is on low dose epi drip, this morning sedation off, she is awake on vent - Objective Resuscitation Status - Order Detail: 02/23/18 12:44 Resuscitation Status Routine Resuscitation Status: FULL: Full Resuscitation MAR Reviewed: Yes Vital Signs & Weight: Vital Signs (12 hours) Temp Pulse Resp BP Pulse Ox 02/25/18 08:00 23 H 02/25/18 07:38 99 02/25/18 07:12 75 86/54 L 02/25/18 07:00 99.9 F H 02/25/18 06:00 20 02/25/18 04:00 20 02/25/18 02:27 76 02/25/18 02:00 20 02/25/18 00:00 20 02/24/18 22:10 73 02/24/18 22:00 20 Weight Admit Weight 99 lb Weight 99 lb 10.383 oz Most Recent Monitor Data Heart Rate from ECG 88 NIBP 101/63 NIBP BP-Mean 75 Respiration from ECG 21 SpO2 99 I&O: 02/24/18 02/25/18 02/26/18 06:59 06:59 06:59 Intake Total 3492.6 5015 0 Output Total 245 350 35 Balance 3247.6 4665 -35 Result Diagrams: 02/25/18 05:35 02/25/18 05:35 Radiology Reviewed by me: Yes (chest xray reviwed) EKG Reviewed by me: Yes (nsr) Phys Exam - Physical Examination Constitutional: NAD intubated HEENT: PERRLA, sclera anicteric Neck: no JVD, supple Respiratory: no wheezing, no rales, no rhonchi anteriorly Cardiovascular: RRR, no significant murmur, no rub Gastrointestinal: soft, non-tender, no distention, positive bowel sounds Musculoskeletal: no edema, pulses present scd+, brown+ Neurological: moves all 4 limbs Lymphatic: no nodes Skin: no rash, normal turgor Dx/Plan (1) Acute respiratory failure with hypoxemia Code(s): J96.01 - ACUTE RESPIRATORY FAILURE WITH HYPOXIA Status: Acute (2) Cardiomyopathy Code(s): I42.9 - CARDIOMYOPATHY, UNSPECIFIED Status: Acute (3) Severe mitral regurgitation Code(s): I34.0 - NONRHEUMATIC MITRAL (VALVE) INSUFFICIENCY Status: Acute (4) Paroxysmal atrial fibrillation Code(s): I48.0 - PAROXYSMAL ATRIAL FIBRILLATION Status: Acute (5) Acute worsening of stage 3 chronic kidney disease Code(s): N18.3 - CHRONIC KIDNEY DISEASE, STAGE 3 (MODERATE) Status: Acute (6) Cardiac arrest Code(s): I46.9 - CARDIAC ARREST, CAUSE UNSPECIFIED Status: Acute (7) Cardiogenic shock Code(s): R57.0 - CARDIOGENIC SHOCK Status: Acute (8) Lactic acidosis Code(s): E87.2 - ACIDOSIS Status: Acute (9) Metabolic acidosis Code(s): E87.2 - ACIDOSIS Status: Acute (10) NSTEMI (non-ST elevated myocardial infarction) Code(s): I21.4 - NON-ST ELEVATION (NSTEMI) MYOCARDIAL INFARCTION Status: Acute (11) Severe anemia Code(s): D64.9 - ANEMIA, UNSPECIFIED Status: Acute (12) Transaminitis Code(s): R74.0 - NONSPEC ELEV OF LEVELS OF TRANSAMNS & LACTIC ACID DEHYDRGNSE Status: Acute (13) Anxiety and depression Code(s): F41.9 - ANXIETY DISORDER, UNSPECIFIED; F32.9 - MAJOR DEPRESSIVE DISORDER, SINGLE EPISODE, UNSPECIFIED Status: Chronic (14) CAD (coronary artery disease) Code(s): I25.10 - ATHSCL HEART DISEASE OF [place] CORONARY ARTERY W/O ANG PCTRS Status: Chronic (15) DM2 (diabetes mellitus, type 2) Status: Chronic (16) Dyslipidemia Code(s): E78.5 - HYPERLIPIDEMIA, UNSPECIFIED Status: Chronic (17) GERD (gastroesophageal reflux disease) Code(s): K21.9 - GASTRO-ESOPHAGEAL REFLUX DISEASE WITHOUT ESOPHAGITIS Status: Chronic (18) Hypothyroidism Code(s): E03.9 - HYPOTHYROIDISM, UNSPECIFIED Status: Chronic (19) Protein-calorie malnutrition, moderate Code(s): E44.0 - MODERATE PROTEIN-CALORIE MALNUTRITION Status: Chronic (20) Tobacco abuse Code(s): Z72.0 - TOBACCO USE Status: Chronic - Plan cont current plan of care, continue antibiotics * medication reviewed as below * symptomatic treatment * continue rocephin * wean epi drip as tolerated * ventilator as per pulmonary * will monitor * cardiology and pulmonary on case. * creatininue is still increasing and LFT improving * monitor labs Review of Systems - Review of Systems Other: unable to review due to intubated status - Medications/Allergies Allergies/Adverse Reactions: Allergies Allergy/AdvReac Type Severity Reaction Status Date / Time No Known Allergies Allergy Verified 07/01/17 01:28 Medications: Current Medications Acetaminophen (Tylenol) 650 mg SC Q4H PRN PRN Reason: Headache/Fever/Mild Pain (1-3) Last Admin: 02/24/18 20:21 Dose: 650 mg Acetaminophen (Tylenol) 650 mg PER TUBE Q4H PRN PRN Reason: Headache/Fever/Mild Pain (1-3) Albuterol/Ipratropium (Duoneb) 3 ml NEB [id number] PRN PRN Reason: SOB &/or Wheezing Bisacodyl (Dulcolax) 10 mg SC DAILYPRN PRN PRN Reason: Constipation Norepinephrine Bitartrate (Levophed) 250 mls @ 0 mls/hr IVPB PRN PRN; Protocol PRN Reason: To maintain MAP > 65 Last Admin: 02/25/18 01:07 Dose: 250 mls Pantoprazole Sodium 80 mg/ (Sodium Chloride) 100 mls @ 10 mls/hr IVPB INF GINA Last Admin: 02/25/18 05:09 Dose: 100 mls Fentanyl Citrate 2,000 mcg/ (Sodium Chloride) 100 mls @ 0 mls/hr IV INF GINA; Protocol Stop: 03/25/18 12:52 Last Admin: 02/24/18 01:07 Dose: 100 mls Fentanyl Citrate (Fentanyl Bolus) 250 mls @ 0 mls/hr IVPB PRN PRN PRN Reason: Breakthrough pain/agitation Stop: 03/25/18 12:52 Potassium Chloride 40 meq/ (Sodium Chloride) 270 mls @ 135 mls/hr IVPB ASDIR PRN PRN Reason: FOR SERUM K+ 2.5 - 3.5 Potassium Chloride 40 meq/ (Device) 100 mls @ 50 mls/hr IVPB ASDIR PRN PRN Reason: FOR SERUM K+ 2.5 - 3.5 Last Admin: 02/23/18 15:24 Dose: 100 mls Magnesium Sulfate 1 gm/ Sodium (Chloride) 102 mls @ 102 mls/hr IV PRN PRN PRN Reason: MAG LEVEL 1.4 - 2.0 Magnesium Sulfate 2 gm/ Device 100 mls @ 100 mls/hr IVPB ASDIR PRN PRN Reason: MAGNESIUM < 1.4 Potassium Phosphate 9 mmol/ (Sodium Chloride) 103 mls @ 25.75 mls/hr IVPB ASDIR PRN PRN Reason: Phosphate 1.0-1.8 Potassium Phosphate 12 mmol/ (Sodium Chloride) 254 mls @ 63.5 mls/hr IV ASDIR PRN PRN Reason: Serum phosphate 0.5-0.9 Potassium Phosphate 15 mmol/ (Sodium Chloride) 255 mls @ 63.75 mls/hr IV ASDIR PRN PRN Reason: Serum Phos < 0.5 Epinephrine 4 mg/ Dextrose/ (Water) 254 mls @ 0 mls/hr IV INF GINA; Protocol Last Admin: 02/25/18 01:06 Dose: 254 mls Sodium Chloride (Normal Saline 0.9%) 1,000 mls @ 125 mls/hr IV .Q8H [facility] Last Admin: 02/25/18 05:09 Dose: 1,000 mls Ceftriaxone Sodium 1 gm/ (Sodium Chloride) 100 mls @ 200 mls/hr IVPB Q24HR [facility] Last Admin: 02/25/18 08:23 Dose: 100 mls Lorazepam (Ativan) 2 mg SLOW IVP Q1H PRN PRN Reason: Breakthrough agitation Stop: 03/25/18 12:52 Last Admin: 02/24/18 11:37 Dose: 2 mg Magnesium Oxide (Magnesium Oxide) 400 mg PO BIDPRN PRN PRN Reason: FOR SERUM MAG 1.4 - 2.0 Magnesium Oxide (Magnesium Oxide) 800 mg PO PRN PRN PRN Reason: FOR SERUM MAG < 1.4 Miscellaneous Medication (Phos-Nak) 1 pkt PO TIDPRN PRN PRN Reason: FOR PHOS LEVEL 1.0 - 1.8 Miscellaneous Medication (Phos-Nak) 2 pkt PO TIDPRN PRN PRN Reason: FOR PHOS LEVEL 0.5 - 1.0 Morphine Sulfate (Morphine) 2 mg SLOW IVP Q1H PRN PRN Reason: BREAKTHROUGH PAIN/Agitation Stop: 03/25/18 12:52 Last Admin: 02/24/18 00:51 Dose: 2 mg Discontinue Previous Narcotic Pain Medications And Benzodiazepines 1 each FS .ONE GINA Stop: 03/25/18 12:52 Ccu Electrolyte (Replacement Protocol) 0 each FS PRN PRN PRN Reason: FOR ELECTROLYTE REPLACEMENT Ondansetron HCl (Zofran Odt) 4 mg SL Q6H PRN PRN Reason: Nausea/Vomiting Ondansetron HCl (Zofran) 4 mg IVP Q6H PRN PRN Reason: Nausea/Vomiting Potassium Chloride (K-Dur) 40 meq PO ASDIR PRN PRN Reason: FOR SERUM K+ 2.5 - 3.5 Potassium Chloride (Klor-Con) 40 meq PER TUBE ASDIR PRN PRN Reason: FOR SERUM K+ 2.5-3.5 Propofol (Diprivan) 1,000 mg IV INF PRN; Protocol PRN Reason: TO ACHIEVE GOAL RASS Stop: 03/25/18 12:52 Propofol (Diprivan Bolus) 20 mg IV Q5MIN PRN PRN Reason: BREAKTHROUGH AGITATION Stop: 03/25/18 12:52
--- NOTE | 2018-02-25 10:29 | PRG ---
DATE OF SERVICE: 02/25/2018 SUBJECTIVE: She is intubated on the vent. Responsive. No sedation. OBJECTIVE: VITAL SIGNS: Pulse is 84, blood pressure is 94/45, sats 100%, respirations 20. CHEST: Reveals extensive rhonchi and crackles, left greater than right. CARDIAC: Sinus tach. ABDOMEN: Soft. NEUROLOGIC: She is awake, moves all four extremities. LABORATORY DATA: PO2 is 58, pCO2 is Creatinine 3.8. X-ray shows extensive left-sided infiltrate. Urine growing E coli. White count is 17,000, H and H 9 and 30, platelet count IMPRESSION: 1. Status post cardiac arrest. 2. Atrial fibrillation. 3. Coronary artery disease. 4. Renal failure. 5. Diabetes. 6. Respiratory failure. 7. Abnormal chest x-ray. Still on pressors, epinephrine, and norepinephrine. If she is not weanable, we will start nutrition, PT, supportive care, serial exam. One-half hour critical time. Job ID: [id number]
--- NOTE | 2018-02-25 10:34 | RAD ---
PORTABLE FRONTAL CHEST RADIOGRAPH: 02/25/2018 HISTORY: Shortness of breath. CCU patient. COMPARISON: 02/24/2018 FINDINGS: As seen on the prior examination, the endotracheal tube terminates at the level of the isabel, direct ed toward the right mainstem bronchus. Recommend retracting the endotracheal tube, which could be re tracted by at least 3 cm. Nasogastric tube extends into the upper abdomen. There is interstitial and alveolar opacity in the right perihilar region, suggesting edematous change , volume loss, and/or aspiration/infectious pneumonitis. Midline sternotomy wires and mediastinal cl ips are present. There is extensive pleural and parenchymal opacity throughout the left hemithorax, with sparing of the left lung apex, similar when compared to prior imaging. IMPRESSION: No significant interval change. POS: DARNELL
[2018-02-25 10:47] LABS: Lactic Acid 1.7 mmol/L (0.5-2.2)
[2018-02-25 12:24] VITALS: TEMP 99.3
[2018-02-25 16:34] VITALS: BP 81/49
[2018-02-25] MEDS: fentaNYL Citrate/PF 2,000 MCG in Sodium Chloride 0.9% 60 ML IV SCH (17:26)
--- NOTE | 2018-02-26 07:58 | DIS ---
DATE OF ADMISSION: 02/23/2018 DATE OF DISCHARGE: 02/25/2018 SUMMARY PRIMARY CARE PHYSICIAN: Kala Sood, nurse practitioner. DATE OF : February 25, 2018, at 2221 hours. PRIMARY CAUSES OF : 1. Cardiogenic shock. 2. [id number] myocardial infarction. 3. Acute respiratory failure with hypoxia. 4. Acute on chronic kidney failure; baseline chronic kidney disease, stage 3. 5. Cardiac arrest. CONTRIBUTING DIAGNOSES: 1. Cardiomyopathy. 2. Metabolic acidosis. 3. Paroxysmal atrial fibrillation. 4. Severe anemia. 5. Severe mitral regurgitation. 6. Coronary artery disease. 7. Diabetes, type 2. 8. Hypothyroidism. 9. Moderate protein-calorie malnutrition. PRIMARY PROCEDURES/OPERATIONS: Central line, endotracheal intubation. RADIOLOGICAL INVESTIGATIONS: Echocardiography, chest x-ray. HOSPITAL SUMMARY: A 67-year-old female, who was feeling weak for 4 days before admission. Her blood pressure was running low at home. She did not come to hospital initially, but her symptoms gotten worse over period of time, and she was brought to ER by Paramedics. She was hypotensive in the emergency room. She had two times cardiac arrest in the emergency room, required CPR. The patient had successful resuscitation, and the patient was kept on epinephrine drip and Levophed drip. She had significantly elevated troponin. Her EKG was also showing ST-T changes. Clinically, presentation was consistent with cardiogenic shock and [id number] [place]. She was also found with UTI. She was given Rocephin. She had symptomatic severe anemia, required blood transfusion. The patient also had severe metabolic acidosis. Ventilator was managed by [facility]. Her creatinine and liver function test were also going up from hypoperfusion. She had severe lactic acidosis and had metabolic acidosis from renal failure. Initially, the patient showed some improvement, but again, the patient had code blue and required resuscitation, but this time, the patient did not successfully resuscitated despite maximum trial. was pronounced, and body was released for . Job ID: [id number]
== END 2018-02-25 22:21 | disposition expired ==
LOC: ERS 09:54 → CCU 12:19
PROVIDERS: ADMIT Internal Medicine; ATTEND Internal Medicine
PROC: 30233N1 Transfusion of Nonautologous Red Blood Cells into Peripheral Vein, Percutaneous Approach (ICD-10-PCS; principal; 2018-02-23)
PROC: 5A1945Z Respiratory Ventilation, 24-96 Consecutive Hours (ICD-10-PCS; 2018-02-23)
PROC: 0BH17EZ Insertion of Endotracheal Airway into Trachea, Via Natural or Artificial Opening (ICD-10-PCS; 2018-02-23)
DX: I46.9 Cardiac arrest, cause unspecified (principal); J96.01 Acute respiratory failure with hypoxia; I21.4 Non-ST elevation (NSTEMI) myocardial infarction; E87.2 Acidosis; N17.9 Acute kidney failure, unspecified; E44.0 Moderate protein-calorie malnutrition; N39.0 Urinary tract infection, site not specified; R57.0 Cardiogenic shock; I25.5 Ischemic cardiomyopathy; I34.0 Nonrheumatic mitral (valve) insufficiency; I48.0 Paroxysmal atrial fibrillation; I12.9 Hypertensive chronic kidney disease with stage 1 through stage 4 chronic kidney disease, or unspecified chronic kidney disease; E11.22 Type 2 diabetes mellitus with diabetic chronic kidney disease; N18.3 Chronic kidney disease, stage 3 (moderate); Z87.891 Personal history of nicotine dependence; D63.1 Anemia in chronic kidney disease; F41.9 Anxiety disorder, unspecified; I25.10 Atherosclerotic heart disease of native coronary artery without angina pectoris; E78.5 Hyperlipidemia, unspecified; K21.9 Gastro-esophageal reflux disease without esophagitis; E03.9 Hypothyroidism, unspecified
CPT/HCPCS: 31500; 36415; 36430; 36556; 51702; 71045; 80053; 81003; 81015; 82274; 82533; 82550; 82553; 82805; 83605; 83735; 84100; 84443; 84484; 85007; 85025; 85027; 86850; 86900; 86901; 87040; 87077; 87086; 87186; 92950; 93005; 93306; 94002; 94003; 96361; 96365; 96374; 96375; 96376; C9113; J0171; J0461; J0696; J1265; J2060; J2270; J3010; J3480; J7050; J7070; P9016